=== PATIENT | female | born 1965 | race Caucasian/White ===

== ENCOUNTER 2023-01-16 16:57 | Inpatient (IN) | payer OTHER, SELFPAY ==
--- NOTE | ~2023-01-16 | XR_ITS ---
EXAMINATION: XR CHEST CLINICAL INFORMATION: Chest/rib pain. COMPARISON: None available. TECHNIQUE: Portable upright AP view of the chest was obtained. FINDINGS: The lungs are clear. There is no pneumothorax, pneumomediastinum, or subcutaneous emphysema. No free air beneath the diaphragms. Heart size normal. The vascularity is normal. The costophrenic sulci are well-defined. The visualized bony structures are unremarkable. XR/XR chest 1V IMPRESSION: Unremarkable examination.
[2023-01-16 17:17] VITALS: BP 141/87; PULSE 90; RESP 18; TEMP 36.8; O2SAT 100; BMI 28.9
[2023-01-16 17:31] VITALS: PULSE 86; RESP 18
--- NOTE | 2023-01-16 17:31 | ED_ITS ---
HPI - General Adult General Chief complaint: Psychiatric Symptoms <POLI Corbin - Last Filed: 01/16/23 17:32> Stated complaint: No sleep in days/Increased medication on her own <POLI Corbin - Last Filed: 01/16/23 17:32> Time Seen by Provider: 01/16/23 17:20 <POLI Corbin - Last Filed: 01/16/23 17:32> Source: patient and family <Walter Telles MD - Last Filed: 01/16/23 17:45> Limitations: no limitations <Walter Telles MD - Last Filed: 01/16/23 17:45> History of Present Illness HPI narrative: Patient complains of manic episode. 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 She states she has been unable to sleep for the last several days and prior to that only 2 hours per night. She feels or thoughts racing. She states she has suicidal thoughts but no specific plan and states she would not act on them. She has prior history of manic episodes. She occasionally has some attic symptoms and has been worked up for stroke in the past which has been negative. No recent illness No pain No other complaints <Walter Telles MD - Last Filed: 01/16/23 17:45> Related Data Home medications: Home Medications Medication Instructions Recorded Confirmed apixaban 5 mg tablet (Eliquis) 5 mg PO BID 01/16/23 01/16/23 lamotrigine 25 mg tablet 25 mg PO DAILY 01/16/23 01/16/23 levothyroxine 25 mcg tablet 25 mcg PO DAILY 01/16/23 01/16/23 paroxetine HCl 10 mg tablet 50 mg PO DAILY 01/16/23 01/16/23 <POLI Corbin - Last Filed: 01/16/23 17:32> Allergies/adverse reactions: Allergies Allergy/AdvReac Type Severity Reaction Status Date / Time Sulfa (Sulfonamide Allergy Unknown RASH Verified 01/16/23 17:21 Antibiotics) [Sulfa(Sulfonamide Antibiotics)] <POLI Corbin - Last Filed: 01/16/23 17:32> Review of Systems Constitutional: Comments: No fevers chills <Walter Telles MD - Last Filed: 01/16/23 17:45> Cardiovascular: Comments: No chest pain <Walter Telles MD - Last Filed: 01/16/23 17:45> Respiratory: Comments: No cough or shortness of breath <Walter Telles MD - Last Filed: 01/16/23 17:45> Gastrointestinal: Comments: No nausea vomiting diarrhea or abdominal pain <Walter Telles MD - Last Filed: 01/16/23 17:45> Musculoskeletal: Comments: No musculoskeletal pain <Walter Telles MD - Last Filed: 01/16/23 17:45> Neurologic: Comments: No focal weakness at this time <Walter Telles MD - Last Filed: 01/16/23 17:45> Psychiatric: Comments: Thoughts racing. Anxiety and depression with vague suicidal thoughts but no specific plan <Walter Telles MD - Last Filed: 01/16/23 17:45> FOR[facility]LY [facility] Past Medical History Medical History: Medical History (Updated 01/17/23 @ 09:17 by POLI Keane) Bipolar disorder Depressed affect <POLI Corbin - Last Filed: 01/16/23 17:32> Surgical History: Surgical History (Updated 01/16/23 @ 17:34 by Carie Masterson) Hx of cholecystectomy <POLI Corbin - Last Filed: 01/16/23 17:32> Social History Social History: Social History Smoked in Last 30 Days: No Use of substances other than those prescribed or required for medical reasons: No Advance Directives: No Advance Directives Information Provided: No Healthcare Proxy: No Guardian: No <POLI Corbin - Last Filed: 01/16/23 17:32> Physical Exam ED Vital Signs: Vital Signs - 24 hr 01/16/23 17:17 01/16/23 17:31 01/16/23 18:37 Temperature 98.3 F 98.6 F Pulse Rate 90 86 79 Respiratory Rate 18 18 16 Blood Pressure 141/87 H 161/90 H Pulse Oximetry 100 97 Oxygen Delivery Method Room Air Room Air 01/16/23 22:34 01/17/23 06:00 01/17/23 14:12 Temperature 97.8 F Pulse Rate 77 86 97 Respiratory Rate 18 17 16 Blood Pressure 119/73 131/78 142/86 H Pulse Oximetry 96 100 97 Oxygen Delivery Method Room Air Room Air Room Air BMI result Body Mass Index 28.9 <POLI Corbin - Last Filed: 01/16/23 17:32> Vital Signs - 24 hr 01/16/23 17:17 01/16/23 17:31 01/16/23 18:37 Temperature 98.3 F 98.6 F Pulse Rate 90 86 79 Respiratory Rate 18 18 16 Blood Pressure 141/87 H 161/90 H Pulse Oximetry 100 97 Oxygen Delivery Method Room Air Room Air 01/16/23 22:34 01/17/23 06:00 01/17/23 14:12 Temperature 97.8 F Pulse Rate 77 86 97 Respiratory Rate 18 17 16 Blood Pressure 119/73 131/78 142/86 H Pulse Oximetry 96 100 97 Oxygen Delivery Method Room Air Room Air Room Air BMI result Body Mass Index 28.9 <Walter Telles MD - Last Filed: 01/16/23 17:45> Vital Signs - 24 hr 01/16/23 17:17 01/16/23 17:31 01/16/23 18:37 Temperature 98.3 F 98.6 F Pulse Rate 90 86 79 Respiratory Rate 18 18 16 Blood Pressure 141/87 H 161/90 H Pulse Oximetry 100 97 Oxygen Delivery Method Room Air Room Air 01/16/23 22:34 01/17/23 06:00 01/17/23 14:12 Temperature 97.8 F Pulse Rate 77 86 97 Respiratory Rate 18 17 16 Blood Pressure 119/73 131/78 142/86 H Pulse Oximetry 96 100 97 Oxygen Delivery Method Room Air Room Air Room Air BMI result Body Mass Index 28.9 <POLI Keane - Last Filed: 01/17/23 16:51> Course Course Course Narrative: This is an RME: Additional HPI, ROS, PE not included below will be deferred to primary provider. 57-year-old female presents to the emergency department with , with failure to thrive over the past few weeks, patient has been adjusting her own Paxil dose at home. reports she has not had much energy has not been getting out of bed has been putting her fingers down her throat, has not been acting herself this has been worsening over the past few days. Physical exam patient with bizarre affect. Plan- straight to ED. <POLI Corbin - Last Filed: 01/16/23 17:32> Reevaluation(s) Reevaluation #1: 01/17/23--0916--physician observation continued. Vital signs stable, labs reviewed. No complaints overnight. Patient pending CARE team evaluation -patient evaluated by CARE team and is now in inpatient bed search <POLI Keane - Last Filed: 01/17/23 16:51> Medications Administered Generic Name Dose Route Start Last Admin Trade Name Freq PRN Reason Stop Dose Admin Apixaban 5 mg 01/17/23 09:30 01/17/23 10:52 Apixaban 5 Mg Tablet PO 5 mg BID MAGI Administration Lamotrigine 25 mg 01/17/23 09:30 01/17/23 10:53 Lamotrigine 25 Mg Tablet PO 25 mg DAILY MAGI Administration Levothyroxine Sodium 25 mcg 01/17/23 09:30 01/17/23 10:52 Levothyroxine Sodium 25 Mcg Tablet PO 25 mcg DAILY@0600 MAGI Administration Paroxetine HCl 50 mg 01/17/23 09:30 01/17/23 10:52 Paroxetine Hcl 10 Mg Tablet PO 50 mg DAILY MAGI Administration Discontinued Medications Generic Name Dose Route Start Last Admin Trade Name Freq PRN Reason Stop Dose Admin Lorazepam 1 mg 01/16/23 17:38 01/16/23 18:16 Lorazepam 1 Mg Tablet PO 01/16/23 17:39 1 mg ONCE ONE Administration Lorazepam 2 mg 01/16/23 23:03 01/16/23 23:43 Lorazepam 1 Mg Tablet PO 01/16/23 23:04 2 mg ONCE ONE Administration <POLI Corbin - Last Filed: 01/16/23 17:32> Medications Administered Generic Name Dose Route Start Last Admin Trade Name Freq PRN Reason Stop Dose Admin Apixaban 5 mg 01/17/23 09:30 01/17/23 10:52 Apixaban 5 Mg Tablet PO 5 mg BID MAGI Administration Lamotrigine 25 mg 01/17/23 09:30 01/17/23 10:53 Lamotrigine 25 Mg Tablet PO 25 mg DAILY MAGI Administration Levothyroxine Sodium 25 mcg 01/17/23 09:30 01/17/23 10:52 Levothyroxine Sodium 25 Mcg Tablet PO 25 mcg DAILY@0600 MAGI Administration Paroxetine HCl 50 mg 01/17/23 09:30 01/17/23 10:52 Paroxetine Hcl 10 Mg Tablet PO 50 mg DAILY MAGI Administration Discontinued Medications Generic Name Dose Route Start Last Admin Trade Name Freq PRN Reason Stop Dose Admin Lorazepam 1 mg 01/16/23 17:38 01/16/23 18:16 Lorazepam 1 Mg Tablet PO 01/16/23 17:39 1 mg ONCE ONE Administration Lorazepam 2 mg 01/16/23 23:03 01/16/23 23:43 Lorazepam 1 Mg Tablet PO 01/16/23 23:04 2 mg ONCE ONE Administration <Walter Telles MD - Last Filed: 01/16/23 17:45> Medications Administered Generic Name Dose Route Start Last Admin Trade Name Freq PRN Reason Stop Dose Admin Apixaban 5 mg 01/17/23 09:30 01/17/23 10:52 Apixaban 5 Mg Tablet PO 5 mg BID MAGI Administration Lamotrigine 25 mg 01/17/23 09:30 01/17/23 10:53 Lamotrigine 25 Mg Tablet PO 25 mg DAILY MGAI Administration Levothyroxine Sodium 25 mcg 01/17/23 09:30 01/17/23 10:52 Levothyroxine Sodium 25 Mcg Tablet PO 25 mcg DAILY@0600 MAGI Administration Paroxetine HCl 50 mg 01/17/23 09:30 01/17/23 10:52 Paroxetine Hcl 10 Mg Tablet PO 50 mg DAILY MAGI Administration Discontinued Medications Generic Name Dose Route Start Last Admin Trade Name Freq PRN Reason Stop Dose Admin Lorazepam 1 mg 01/16/23 17:38 01/16/23 18:16 Lorazepam 1 Mg Tablet PO 01/16/23 17:39 1 mg ONCE ONE Administration Lorazepam 2 mg 01/16/23 23:03 01/16/23 23:43 Lorazepam 1 Mg Tablet PO 01/16/23 23:04 2 mg ONCE ONE Administration <POLI Keane - Last Filed: 01/17/23 16:51> Medical Decision Making Medical Decision Making MDM Narrative: Manic episode in patient with bipolar disorder. Evidence of harm to self at this point. Will do a workup and consult crisis. Ativan <Walter Telles MD - Last Filed: 01/16/23 17:45> Lab Data Result Diagrams: 01/16/23 18:49 01/16/23 18:49 <POLI Corbin - Last Filed: 01/16/23 17:32> Labs: Lab Results 01/16/23 01/16/23 01/16/23 Range/Units 18:49 18:49 18:49 WBC 11.4 H (4.8-10.8) X10*3/uL RBC 4.50 (4.20-5.50) X10*6/uL Hgb 14.2 (12.0-16.0) g/dl Hct 41.3 (37.0-47.0) % MCV 91.8 (80.0-98.0) fL MCH 31.6 (27.0-33.0) pg MCHC 34.4 (31.0-35.0) g/dl RDW 13.1 (11.0-16.0) % Plt Count 314 (160-400) X10*3/uL MPV 10.4 (9.4-12.3) fL Immature Gran % (Auto) 0.3 (0.0-0.4) % Neut % (Auto) 56.9 (45-73) % Lymph % (Auto) 31.0 (20-40) % [place] % (Auto) 10.2 (2-11) % Eos % (Auto) 1.1 (0-4) % Baso % (Auto) 0.5 (0-2) % Lymph # (Auto) 3.5 (1.2-4.9) X10*3/uL [place] # (Auto) 1.2 (0.1-1.2) X10*3/uL Eos # (Auto) 0.1 (0.0-0.4) X10*3/uL Baso # (Auto) 0.1 (0.0-0.2) X10*3/uL Abs Immat Gran (auto) 0.03 (0.00-0.03) X10*3/uL Absolute Neuts (auto) 6.5 (2.0-8.3) x10*3/uL Absolute Nucleated RBC 0.000 (0.0-0.012) X10*3/uL Nucleated RBC % (auto) 0.0 (0.0-0.2) /100WBC Sodium 141 (135-145) mmol/L Potassium 4.1 (3.3-5.1) mmol/L Chloride 106 (96-108) mmol/L Carbon Dioxide 21 L (22-29) mmol/L Anion Gap 18 (12-20) BUN 18 H (9-16) mg/dL Creatinine 0.86 (0.5-1.4) mg/dL Estim Creat Clear Calc 68.7 Estimated GFR > 60 Random Glucose 122 H (60-115) mg/dL Calcium 9.8 (8.4-10.2) mg/dL Total Bilirubin 0.8 (0.0-1.0) mg/dL AST 23 (5-31) U/L ALT 24 (0-31) U/L Alkaline Phosphatase 58 (39-117) U/L Total Protein 7.1 (6.5-8.0) g/dL Albumin 4.5 (3.5-5.0) g/dL TSH 2.71 (0.32-4.0) uIU/mL Urine Color Urine Appearance Urine pH (5.0-9.0) Ur Specific Cornelius (1.005-1.025) Urine Protein (Neg-Trace) mg/dL Urine Glucose (UA) (Negative) mg/dL Urine Ketones (Negative) mg/dL Urine Blood (Negative) Urine Nitrite (Negative) Ur Leukocyte Esterase (Negative) Urine Opiates Screen (Not Detect) Urine Fentanyl Screen (Not Detect) Ur Barbiturates Screen (Not Detect) Ur Phencyclidine Scrn (Not Detect) Ur Amphetamines Screen (Not Detect) U Benzodiazepines Scrn (Not Detect) Urine Cocaine Screen (Not Detect) U Marijuana (THC) Screen (Not Detect) Ethyl Alcohol < 10 mg/dL COVID-19 ([facility]) Negative (Negative) COVID-19 Clin Com See Note 01/16/23 01/16/23 Range/Units 23:46 23:46 WBC (4.8-10.8) X10*3/uL RBC (4.20-5.50) X10*6/uL Hgb (12.0-16.0) g/dl Hct (37.0-47.0) % MCV (80.0-98.0) fL MCH (27.0-33.0) pg MCHC (31.0-35.0) g/dl RDW (11.0-16.0) % Plt Count (160-400) X10*3/uL MPV (9.4-12.3) fL Immature Gran % (Auto) (0.0-0.4) % Neut % (Auto) (45-73) % Lymph % (Auto) (20-40) % [place] % (Auto) (2-11) % Eos % (Auto) (0-4) % Baso % (Auto) (0-2) % Lymph # (Auto) (1.2-4.9) X10*3/uL [place] # (Auto) (0.1-1.2) X10*3/uL Eos # (Auto) (0.0-0.4) X10*3/uL Baso # (Auto) (0.0-0.2) X10*3/uL Abs Immat Gran (auto) (0.00-0.03) X10*3/uL Absolute Neuts (auto) (2.0-8.3) x10*3/uL Absolute Nucleated RBC (0.0-0.012) X10*3/uL Nucleated RBC % (auto) (0.0-0.2) /100WBC Sodium (135-145) mmol/L Potassium (3.3-5.1) mmol/L Chloride (96-108) mmol/L Carbon Dioxide (22-29) mmol/L Anion Gap (12-20) BUN (9-16) mg/dL Creatinine (0.5-1.4) mg/dL Estim Creat Clear Calc Estimated GFR Random Glucose (60-115) mg/dL Calcium (8.4-10.2) mg/dL Total Bilirubin (0.0-1.0) mg/dL AST (5-31) U/L ALT (0-31) U/L Alkaline Phosphatase (39-117) U/L Total Protein (6.5-8.0) g/dL Albumin (3.5-5.0) g/dL TSH (0.32-4.0) uIU/mL Urine Color Yellow Urine Appearance Clear Urine pH 7.5 (5.0-9.0) Ur Specific Cornelius 1.010 (1.005-1.025) Urine Protein Negative (Neg-Trace) mg/dL Urine Glucose (UA) Negative (Negative) mg/dL Urine Ketones Negative (Negative) mg/dL Urine Blood Negative (Negative) Urine Nitrite Negative (Negative) Ur Leukocyte Esterase Negative (Negative) Urine Opiates Screen Not Detected (Not Detect) Urine Fentanyl Screen Not Detected (Not Detect) Ur Barbiturates Screen Not Detected (Not Detect) Ur Phencyclidine Scrn Not Detected (Not Detect) Ur Amphetamines Screen Not Detected (Not Detect) U Benzodiazepines Scrn Not Detected (Not Detect) Urine Cocaine Screen Not Detected (Not Detect) U Marijuana (THC) Screen Not Detected (Not Detect) Ethyl Alcohol mg/dL COVID-19 ([facility]) (Negative) COVID-19 Clin Com <POLI Corbin - Last Filed: 01/16/23 17:32> Lab Results 01/16/23 01/16/23 01/16/23 Range/Units 18:49 18:49 18:49 WBC 11.4 H (4.8-10.8) X10*3/uL RBC 4.50 (4.20-5.50) X10*6/uL Hgb 14.2 (12.0-16.0) g/dl Hct 41.3 (37.0-47.0) % MCV 91.8 (80.0-98.0) fL MCH 31.6 (27.0-33.0) pg MCHC 34.4 (31.0-35.0) g/dl RDW 13.1 (11.0-16.0) % Plt Count 314 (160-400) X10*3/uL MPV 10.4 (9.4-12.3) fL Immature Gran % (Auto) 0.3 (0.0-0.4) % Neut % (Auto) 56.9 (45-73) % Lymph % (Auto) 31.0 (20-40) % [place] % (Auto) 10.2 (2-11) % Eos % (Auto) 1.1 (0-4) % Baso % (Auto) 0.5 (0-2) % Lymph # (Auto) 3.5 (1.2-4.9) X10*3/uL [place] # (Auto) 1.2 (0.1-1.2) X10*3/uL Eos # (Auto) 0.1 (0.0-0.4) X10*3/uL Baso # (Auto) 0.1 (0.0-0.2) X10*3/uL Abs Immat Gran (auto) 0.03 (0.00-0.03) X10*3/uL Absolute Neuts (auto) 6.5 (2.0-8.3) x10*3/uL Absolute Nucleated RBC 0.000 (0.0-0.012) X10*3/uL Nucleated RBC % (auto) 0.0 (0.0-0.2) /100WBC Sodium 141 (135-145) mmol/L Potassium 4.1 (3.3-5.1) mmol/L Chloride 106 (96-108) mmol/L Carbon Dioxide 21 L (22-29) mmol/L Anion Gap 18 (12-20) BUN 18 H (9-16) mg/dL Creatinine 0.86 (0.5-1.4) mg/dL Estim Creat Clear Calc 68.7 Estimated GFR > 60 Random Glucose 122 H (60-115) mg/dL Calcium 9.8 (8.4-10.2) mg/dL Total Bilirubin 0.8 (0.0-1.0) mg/dL AST 23 (5-31) U/L ALT 24 (0-31) U/L Alkaline Phosphatase 58 (39-117) U/L Total Protein 7.1 (6.5-8.0) g/dL Albumin 4.5 (3.5-5.0) g/dL TSH 2.71 (0.32-4.0) uIU/mL Urine Color Urine Appearance Urine pH (5.0-9.0) Ur Specific Cornelius (1.005-1.025) Urine Protein (Neg-Trace) mg/dL Urine Glucose (UA) (Negative) mg/dL Urine Ketones (Negative) mg/dL Urine Blood (Negative) Urine Nitrite (Negative) Ur Leukocyte Esterase (Negative) Urine Opiates Screen (Not Detect) Urine Fentanyl Screen (Not Detect) Ur Barbiturates Screen (Not Detect) Ur Phencyclidine Scrn (Not Detect) Ur Amphetamines Screen (Not Detect) U Benzodiazepines Scrn (Not Detect) Urine Cocaine Screen (Not Detect) U Marijuana (THC) Screen (Not Detect) Ethyl Alcohol < 10 mg/dL COVID-19 ([facility]) Negative (Negative) COVID-19 Clin Com See Note 01/16/23 01/16/23 Range/Units 23:46 23:46 WBC (4.8-10.8) X10*3/uL RBC (4.20-5.50) X10*6/uL Hgb (12.0-16.0) g/dl Hct (37.0-47.0) % MCV (80.0-98.0) fL MCH (27.0-33.0) pg MCHC (31.0-35.0) g/dl RDW (11.0-16.0) % Plt Count (160-400) X10*3/uL MPV (9.4-12.3) fL Immature Gran % (Auto) (0.0-0.4) % Neut % (Auto) (45-73) % Lymph % (Auto) (20-40) % [place] % (Auto) (2-11) % Eos % (Auto) (0-4) % Baso % (Auto) (0-2) % Lymph # (Auto) (1.2-4.9) X10*3/uL [place] # (Auto) (0.1-1.2) X10*3/uL Eos # (Auto) (0.0-0.4) X10*3/uL Baso # (Auto) (0.0-0.2) X10*3/uL Abs Immat Gran (auto) (0.00-0.03) X10*3/uL Absolute Neuts (auto) (2.0-8.3) x10*3/uL Absolute Nucleated RBC (0.0-0.012) X10*3/uL Nucleated RBC % (auto) (0.0-0.2) /100WBC Sodium (135-145) mmol/L Potassium (3.3-5.1) mmol/L Chloride (96-108) mmol/L Carbon Dioxide (22-29) mmol/L Anion Gap (12-20) BUN (9-16) mg/dL Creatinine (0.5-1.4) mg/dL Estim Creat Clear Calc Estimated GFR Random Glucose (60-115) mg/dL Calcium (8.4-10.2) mg/dL Total Bilirubin (0.0-1.0) mg/dL AST (5-31) U/L ALT (0-31) U/L Alkaline Phosphatase (39-117) U/L Total Protein (6.5-8.0) g/dL Albumin (3.5-5.0) g/dL TSH (0.32-4.0) uIU/mL Urine Color Yellow Urine Appearance Clear Urine pH 7.5 (5.0-9.0) Ur Specific Cornelius 1.010 (1.005-1.025) Urine Protein Negative (Neg-Trace) mg/dL Urine Glucose (UA) Negative (Negative) mg/dL Urine Ketones Negative (Negative) mg/dL Urine Blood Negative (Negative) Urine Nitrite Negative (Negative) Ur Leukocyte Esterase Negative (Negative) Urine Opiates Screen Not Detected (Not Detect) Urine Fentanyl Screen Not Detected (Not Detect) Ur Barbiturates Screen Not Detected (Not Detect) Ur Phencyclidine Scrn Not Detected (Not Detect) Ur Amphetamines Screen Not Detected (Not Detect) U Benzodiazepines Scrn Not Detected (Not Detect) Urine Cocaine Screen Not Detected (Not Detect) U Marijuana (THC) Screen Not Detected (Not Detect) Ethyl Alcohol mg/dL COVID-19 ([facility]) (Negative) COVID-19 Clin Com <Walter Telles MD - Last Filed: 01/16/23 17:45> Lab Results 01/16/23 01/16/23 01/16/23 Range/Units 18:49 18:49 18:49 WBC 11.4 H (4.8-10.8) X10*3/uL RBC 4.50 (4.20-5.50) X10*6/uL Hgb 14.2 (12.0-16.0) g/dl Hct 41.3 (37.0-47.0) % MCV 91.8 (80.0-98.0) fL MCH 31.6 (27.0-33.0) pg MCHC 34.4 (31.0-35.0) g/dl RDW 13.1 (11.0-16.0) % Plt Count 314 (160-400) X10*3/uL MPV 10.4 (9.4-12.3) fL Immature Gran % (Auto) 0.3 (0.0-0.4) % Neut % (Auto) 56.9 (45-73) % Lymph % (Auto) 31.0 (20-40) % [place] % (Auto) 10.2 (2-11) % Eos % (Auto) 1.1 (0-4) % Baso % (Auto) 0.5 (0-2) % Lymph # (Auto) 3.5 (1.2-4.9) X10*3/uL [place] # (Auto) 1.2 (0.1-1.2) X10*3/uL Eos # (Auto) 0.1 (0.0-0.4) X10*3/uL Baso # (Auto) 0.1 (0.0-0.2) X10*3/uL Abs Immat Gran (auto) 0.03 (0.00-0.03) X10*3/uL Absolute Neuts (auto) 6.5 (2.0-8.3) x10*3/uL Absolute Nucleated RBC 0.000 (0.0-0.012) X10*3/uL Nucleated RBC % (auto) 0.0 (0.0-0.2) /100WBC Sodium 141 (135-145) mmol/L Potassium 4.1 (3.3-5.1) mmol/L Chloride 106 (96-108) mmol/L Carbon Dioxide 21 L (22-29) mmol/L Anion Gap 18 (12-20) BUN 18 H (9-16) mg/dL Creatinine 0.86 (0.5-1.4) mg/dL Estim Creat Clear Calc 68.7 Estimated GFR > 60 Random Glucose 122 H (60-115) mg/dL Calcium 9.8 (8.4-10.2) mg/dL Total Bilirubin 0.8 (0.0-1.0) mg/dL AST 23 (5-31) U/L ALT 24 (0-31) U/L Alkaline Phosphatase 58 (39-117) U/L Total Protein 7.1 (6.5-8.0) g/dL Albumin 4.5 (3.5-5.0) g/dL TSH 2.71 (0.32-4.0) uIU/mL Urine Color Urine Appearance Urine pH (5.0-9.0) Ur Specific Cornelius (1.005-1.025) Urine Protein (Neg-Trace) mg/dL Urine Glucose (UA) (Negative) mg/dL Urine Ketones (Negative) mg/dL Urine Blood (Negative) Urine Nitrite (Negative) Ur Leukocyte Esterase (Negative) Urine Opiates Screen (Not Detect) Urine Fentanyl Screen (Not Detect) Ur Barbiturates Screen (Not Detect) Ur Phencyclidine Scrn (Not Detect) Ur Amphetamines Screen (Not Detect) U Benzodiazepines Scrn (Not Detect) Urine Cocaine Screen (Not Detect) U Marijuana (THC) Screen (Not Detect) Ethyl Alcohol < 10 mg/dL COVID-19 ([facility]) Negative (Negative) COVID-19 Clin Com See Note 01/16/23 01/16/23 Range/Units 23:46 23:46 WBC (4.8-10.8) X10*3/uL RBC (4.20-5.50) X10*6/uL Hgb (12.0-16.0) g/dl Hct (37.0-47.0) % MCV (80.0-98.0) fL MCH (27.0-33.0) pg MCHC (31.0-35.0) g/dl RDW (11.0-16.0) % Plt Count (160-400) X10*3/uL MPV (9.4-12.3) fL Immature Gran % (Auto) (0.0-0.4) % Neut % (Auto) (45-73) % Lymph % (Auto) (20-40) % [place] % (Auto) (2-11) % Eos % (Auto) (0-4) % Baso % (Auto) (0-2) % Lymph # (Auto) (1.2-4.9) X10*3/uL [place] # (Auto) (0.1-1.2) X10*3/uL Eos # (Auto) (0.0-0.4) X10*3/uL Baso # (Auto) (0.0-0.2) X10*3/uL Abs Immat Gran (auto) (0.00-0.03) X10*3/uL Absolute Neuts (auto) (2.0-8.3) x10*3/uL Absolute Nucleated RBC (0.0-0.012) X10*3/uL Nucleated RBC % (auto) (0.0-0.2) /100WBC Sodium (135-145) mmol/L Potassium (3.3-5.1) mmol/L Chloride (96-108) mmol/L Carbon Dioxide (22-29) mmol/L Anion Gap (12-20) BUN (9-16) mg/dL Creatinine (0.5-1.4) mg/dL Estim Creat Clear Calc Estimated GFR Random Glucose (60-115) mg/dL Calcium (8.4-10.2) mg/dL Total Bilirubin (0.0-1.0) mg/dL AST (5-31) U/L ALT (0-31) U/L Alkaline Phosphatase (39-117) U/L Total Protein (6.5-8.0) g/dL Albumin (3.5-5.0) g/dL TSH (0.32-4.0) uIU/mL Urine Color Yellow Urine Appearance Clear Urine pH 7.5 (5.0-9.0) Ur Specific Cornelius 1.010 (1.005-1.025) Urine Protein Negative (Neg-Trace) mg/dL Urine Glucose (UA) Negative (Negative) mg/dL Urine Ketones Negative (Negative) mg/dL Urine Blood Negative (Negative) Urine Nitrite Negative (Negative) Ur Leukocyte Esterase Negative (Negative) Urine Opiates Screen Not Detected (Not Detect) Urine Fentanyl Screen Not Detected (Not Detect) Ur Barbiturates Screen Not Detected (Not Detect) Ur Phencyclidine Scrn Not Detected (Not Detect) Ur Amphetamines Screen Not Detected (Not Detect) U Benzodiazepines Scrn Not Detected (Not Detect) Urine Cocaine Screen Not Detected (Not Detect) U Marijuana (THC) Screen Not Detected (Not Detect) Ethyl Alcohol mg/dL COVID-19 ([facility]) (Negative) COVID-19 Clin Com <POLI Keane - Last Filed: 01/17/23 16:51> Discharge Plan Discharge Clinical Impression: Bipolar disorder <POLI Corbin - Last Filed: 01/16/23 17:32> Patient Disposition: Still a Patient <POLI Corbin - Last Filed: 01/16/23 17:32> Prescriptions: No Action paroxetine HCl 10 mg tablet 50 mg PO DAILY lamotrigine 25 mg tablet 25 mg PO DAILY Eliquis 5 mg tablet 5 mg PO BID levothyroxine 25 mcg tablet 25 mcg PO DAILY <POLI Corbin - Last Filed: 01/16/23 17:32> Interventions: [place]-Suicide Risk Severity Scale Last Done: 01/17/23 14:12 <POLI Corbin - Last Filed: 01/16/23 17:32>
--- NOTE | 2023-01-16 17:31 | PC.NURSE ---
Addendum entered by Carie Masterson 01/16/23 18:57: is taking the pt's shoes and purse home with him Original Note: pt changed over into green attire and belongings secured in the lockers
[2023-01-16] MEDS: LORazepam 1 MG TABLET PO (18:16)
--- NOTE | 2023-01-16 18:23 | PC.NURSE ---
pt eases herself to the ground of the bed, this rn at the bedside and assisted the pt to the floor, pt did not hit her head, pt did take the ativan tab
[2023-01-16 18:37] VITALS: BP 161/90; PULSE 79; RESP 16; TEMP 37; O2SAT 97
[2023-01-16 18:57] LABS: MANUAL DIFF FLAG NO
[2023-01-16 18:59] LABS: Basophils Absolute Auto 0.1 X10*3/uL (0.0-0.2); Basophils Percent Auto 0.5 % (0-2); Eosinophils Absolute Auto 0.1 X10*3/uL (0.0-0.4); Eosinophils Percent Auto 1.1 % (0-4); Hematocrit 41.3 % (37.0-47.0); Hemoglobin 14.2 g/dl (12.0-16.0); Imm Gran Abs Auto 0.03 X10*3/uL (0.00-0.03); Imm Gran Pct Auto 0.3 % (0.0-0.4); Lymphocytes Absolute Auto 3.5 X10*3/uL (1.2-4.9); Mean Corpuscular HGB Conc 34.4 g/dl (31.0-35.0); Mean Corpuscular Hemoglobin 31.6 pg (27.0-33.0); Mean Corpuscular Volume 91.8 fL (80.0-98.0); Mean Platelet Volume 10.4 fL (9.4-12.3); Monocytes Absolute Auto 1.2 X10*3/uL (0.1-1.2); Monocytes Percent Auto 10.2 % (2-11); Neutrophils Absolute Auto 6.5 x10*3/uL (2.0-8.3); Neutrophils Percent Auto 56.9 % (45-73); Platelet Count 314 X10*3/uL (160-400); Red Cell Distribution Width 13.1 % (11.0-16.0); White Blood Count 11.4 X10*3/uL (4.8-10.8)
[2023-01-16 19:32] LABS: COVID-19 Test Negative (Negative); IDNOW Serial# BCCEAD1C
[2023-01-16 19:35] LABS: Alanine Aminotransferase 24 U/L (0-31); Albumin Level 4.5 g/dL (3.5-5.0); Alkaline Phosphatase 58 U/L (39-117); Anion Gap 18 (12-20); Aspartate Amino Transferase 23 U/L (5-31); Bilirubin Total 0.8 mg/dL (0.0-1.0); Blood Urea Nitrogen 18 mg/dL (9-16); Calcium 9.8 mg/dL (8.4-10.2); Carbon Dioxide 21 mmol/L (22-29); Chloride 106 mmol/L (96-108); Creatinine Clr Calc Pharmacy 68.7; Estimated Glomerular Filt Rate > 60; Ethanol < 10 mg/dL; Glucose Random 122 mg/dL (60-115); Potassium 4.1 mmol/L (3.3-5.1); Sodium 141 mmol/L (135-145); Total Protein 7.1 g/dL (6.5-8.0)
[2023-01-16 19:41] LABS: TSH reflex Free T4 2.71 uIU/mL (0.32-4.0)
[2023-01-16 22:34] VITALS: BP 119/73; PULSE 77; RESP 18; O2SAT 96
--- NOTE | 2023-01-16 22:57 | PC.NURSE ---
pt given a trial with walking before going to the pod. pt is calm cooperative, pt states she has to tell her body to move by talking to herself. pt was having difficulty lifting her head and then on walking pt was telling her feet to move. pt then became weak and started to lower herself to the ground. pt place back in bed, sitter present, and provider made aware that the pt was not taken to the pod.
[2023-01-16] MEDS: LORazepam 1 MG TABLET 2 MG PO (23:43)
[2023-01-16 23:54] LABS: Appearance Urine Clear; Color Urine Yellow; Glucose Urine UA Negative (Negative); Leukocyte Esterase Urine Negative (Negative); Nitrite Urine Negative (Negative); PH 7.5 (5.0-9.0); Urine Blood Negative (Negative); Urine Ketones Negative (Negative); Urine Protein Negative (Neg-Trace)
[2023-01-17 00:08] LABS: Amphetamine Screen Urine Not Detected (Not Detect); Barbiturates, Urine Not Detected (Not Detect); Benzodiazepines Screen Urine Not Detected (Not Detect); Cannabinoid Screen Urine Not Detected (Not Detect); Cocaine Screen Urine Not Detected (Not Detect); Fentanyl, urine Not Detected (Not Detect); Opiate Screen Urine Not Detected (Not Detect); Phencyclidine Screen Urine Not Detected (Not Detect)
[2023-01-17 06:00] VITALS: BP 131/78; PULSE 86; RESP 17; TEMP 36.6; O2SAT 100
--- NOTE | 2023-01-17 06:07 | PC.NURSE ---
pt has been sleeping thur the night. skin pink warm and dry. pt still had weakness with attempting to walk. pt was treated with ativan and has been asleep since. sitter present at bedside. unable to transfer pt to the pod at this time till pt can walk.
--- NOTE | 2023-01-17 08:47 | PC.NURSE ---
Pt awake, conversing with patient observer in room. Offering no complaints
--- NOTE | 2023-01-17 09:44 | PHA.MEDREC ---
Pharmacy Consult ? Medication Reconciliation Pharmacy has reviewed the medication reconciliation done by Isaac
--- NOTE | 2023-01-17 09:57 | PC.NURSE ---
Care Team evaluating patient
[2023-01-17] MEDS: Levothyroxine Sodium 25 MCG TABLET PO (10:52)
[2023-01-17] MEDS: Apixaban 5 MG TABLET PO (10:52)
[2023-01-17] MEDS: PARoxetine HCL 10 MG TABLET 50 MG PO (10:52)
[2023-01-17] MEDS: lamoTRIgine 25 MG TABLET PO (10:53)
--- NOTE | 2023-01-17 10:56 | PC.NURSE ---
Pt still unsteady on feet when up to use commode. Pt reports feeling safe being in the emergency department.
[2023-01-17 14:12] VITALS: BP 142/86; PULSE 97; RESP 16; O2SAT 97
--- NOTE | 2023-01-17 15:43 | PC.NURSE ---
Continues to offer no complaints, resting comfortably in stretcher, patient observer at bedside.
--- NOTE | 2023-01-17 16:33 | ECG_ITS ---
Test Reason : CLEARANCE Blood Pressure : / mmHG Vent. Rate : 089 BPM Atrial Rate : 089 BPM P-R Int : 136 ms QRS Dur : 074 ms QT Int : 364 ms P-R-T Axes : 048 -50 031 degrees QTc Int : 442 ms Normal sinus rhythm Left anterior fascicular block Abnormal ECG No previous ECGs available Referred By: Kristyn House Electronically Signed By:RICHELLE WHITMORE MD
--- NOTE | 2023-01-17 19:01 | PC.NURSE ---
Pt began crying and yelling out in room. Attempted to give PO medications, patient refused stating my body is shutting down, I can't. Offered IM medications which patient accepted.
[2023-01-17 23:50] VITALS: BP 136/82; PULSE 95; RESP 18; TEMP 36.6; O2SAT 96
--- NOTE | 2023-01-18 01:59 | PC.ADMIT ---
PT is a 57 year old female admitted to unit on CV who self presented to [facility] ED with for racing thoughts, poor seep, manic episodes, and reports of SI. PT is known to [facility] and . PT placed on 5 minute safety checks due to sliding off bed and placing self on floor in room intentionally. PT states she has difficulty ambulating due to muscles being constricted with her erika. PT has PMH of depression, bipolar and cholecystectomy. PT able to sign legals and start treatment plan, then requesting to go to bed. PT A+Ox3 and unable to complete admission interview, appears weak, depressed, tired and helpless. PT calm and cooperative otherwise. PT denies SI.HI and reports safe on unit.
[2023-01-18] MEDS: QUEtiapine Fumarate 100 MG TABLET PO (03:10)
[2023-01-18 07:00] VITALS: BMI 28.9
[2023-01-18] MEDS: Levothyroxine Sodium 25 MCG TABLET PO (08:13)
[2023-01-18] MEDS: lamoTRIgine 25 MG TABLET PO (08:13)
[2023-01-18] MEDS: PARoxetine HCL 30 MG TABLET PO (08:13)
[2023-01-18] MEDS: Apixaban 5 MG TABLET PO ×2 (08:13→19:39)
[2023-01-18 08:34] VITALS: BP 172/81; PULSE 75; RESP 16; TEMP 36.3; O2SAT 97
[2023-01-18 09:13] LABS: Alanine Aminotransferase 22 U/L (0-31); Albumin Level 4.3 g/dL (3.5-5.0); Alkaline Phosphatase 58 U/L (39-117); Aspartate Amino Transferase 26 U/L (5-31); Bilirubin Total 0.7 mg/dL (0.0-1.0); Blood Urea Nitrogen 15 mg/dL (9-16); Calcium 9.3 mg/dL (8.4-10.2); Cholesterol 190 mg/dL; Creatinine Clr Calc Pharmacy 68.7; Estimated Glomerular Filt Rate > 60; Glucose Fasting 106 mg/dL (60-99); HDL Cholesterol 46 mg/dL; LDL Cholesterol Calculated 124 mg/dl; Total Protein 6.6 g/dL (6.5-8.0); Triglycerides 100 mg/dL
[2023-01-18 09:22] LABS: Anion Gap 11 (12-20); Carbon Dioxide 29 mmol/L (22-29); Chloride 106 mmol/L (96-108); Potassium 4.4 mmol/L (3.3-5.1); Sodium 142 mmol/L (135-145)
--- NOTE | 2023-01-18 09:29 | P.HPPS_ITS ---
HPI Date of Service: 01/18/23 Chief Complaint: SI Sources of Information: patient interviewed, chart reviewed and crisis/core team assessment reviewed HPI Subjective Notes: Segura Warning and Conditional Voluntary Narrative: Patient is a 57 year old female with a history of PE, bipolar disorder, PTSD, and depression. Who presents to the ED via her due to a manic episode following an self decision to increase Paxil. 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 Prior to this, patient reports feeling depressed for the last 8 months. Patient denies SI/HI/VH/AH. No history of substance abuse noted. Hx of trauma and unprocessed ptsd symptoms. On approach pt hugging stuffed animal and had placed herself on the floor due to unexplained somatic feelings. She has insight to know she's having manic episode. Past Psychiatric History: Patient reports having a similar manic state this time last year thinking she was having a stroke reports psych inpatient 3 other times. She [place] in [place] for [place] psychiatric [place]. Medical Evaluation Reviewed: Yes [facility] Medical History (Updated 01/18/23 @ 14:35 by Raghu Harris MD) Bipolar disorder Depressed affect PTSD (post-traumatic stress disorder) Surgical History (Updated 01/16/23 @ 17:34 by Carie Masterson) Hx of cholecystectomy Diagnostics Vital Signs (24Hr): Vital Signs - 24 hr 01/17/23 14:12 01/17/23 23:50 01/18/23 08:34 Temperature 97.9 F 97.3 F Pulse Rate 97 95 75 Respiratory Rate 16 18 16 Blood Pressure 142/86 H 136/82 172/81 H Pulse Oximetry 97 96 97 Oxygen Delivery Method Room Air Room Air Room Air BMI result Body Mass Index 28.9 Labs 01/16/23 18:49 01/18/23 08:17 Labs: Laboratory Results - last 48 hr 01/16/23 01/16/23 01/16/23 18:49 18:49 18:49 WBC 11.4 H RBC 4.50 Hgb 14.2 Hct 41.3 MCV 91.8 MCH 31.6 MCHC 34.4 RDW 13.1 Plt Count 314 MPV 10.4 Immature Gran % (Auto) 0.3 Neut % (Auto) 56.9 Lymph % (Auto) 31.0 [place] % (Auto) 10.2 Eos % (Auto) 1.1 Baso % (Auto) 0.5 Lymph # (Auto) 3.5 Howard # (Auto) 1.2 Eos # (Auto) 0.1 Baso # (Auto) 0.1 Abs Immat Gran (auto) 0.03 Absolute Neuts (auto) 6.5 Absolute Nucleated RBC 0.000 Nucleated RBC % (auto) 0.0 Sodium 141 Potassium 4.1 Chloride 106 Carbon Dioxide 21 L Anion Gap 18 BUN 18 H Creatinine 0.86 Estim Creat Clear Calc 68.7 Estimated GFR > 60 Random Glucose 122 H Fasting Glucose Calcium 9.8 Total Bilirubin 0.8 AST 23 ALT 24 Alkaline Phosphatase 58 Total Protein 7.1 Albumin 4.5 Triglycerides Cholesterol LDL Cholesterol, Calc HDL Cholesterol TSH 2.71 Urine Color Urine Appearance Urine pH Ur Specific [place] Urine Protein Urine Glucose (UA) Urine Ketones Urine Blood Urine Nitrite Ur Leukocyte Esterase Urine Opiates Screen Urine Fentanyl Screen Ur Barbiturates Screen Ur Phencyclidine Scrn Ur Amphetamines Screen U Benzodiazepines Scrn Urine Cocaine Screen U Marijuana (THC) Screen Ethyl Alcohol < 10 COVID-19 ([facility]) Negative COVID-19 Clin Com See Note 01/16/23 01/16/23 01/18/23 23:46 23:46 08:17 WBC RBC Hgb Hct MCV MCH MCHC RDW Plt Count MPV Immature Gran % (Auto) Neut % (Auto) Lymph % (Auto) [place] % (Auto) Eos % (Auto) Baso % (Auto) Lymph # (Auto) Howard # (Auto) Eos # (Auto) Baso # (Auto) Abs Immat Gran (auto) Absolute Neuts (auto) Absolute Nucleated RBC Nucleated RBC % (auto) Sodium 142 Potassium 4.4 Chloride 106 Carbon Dioxide 29 Anion Gap 11 L BUN 15 Creatinine 0.86 Estim Creat Clear Calc 68.7 Estimated GFR > 60 Random Glucose Fasting Glucose 106 H Calcium 9.3 Total Bilirubin 0.7 AST 26 ALT 22 Alkaline Phosphatase 58 Total Protein 6.6 Albumin 4.3 Triglycerides 100 Cholesterol 190 LDL Cholesterol, Calc 124 HDL Cholesterol 46 TSH Urine Color Yellow Urine Appearance Clear Urine pH 7.5 Ur Specific [place] 1.010 Urine Protein Negative Urine Glucose (UA) Negative Urine Ketones Negative Urine Blood Negative Urine Nitrite Negative Ur Leukocyte Esterase Negative Urine Opiates Screen Not Detected Urine Fentanyl Screen Not Detected Ur Barbiturates Screen Not Detected Ur Phencyclidine Scrn Not Detected Ur Amphetamines Screen Not Detected U Benzodiazepines Scrn Not Detected Urine Cocaine Screen Not Detected U Marijuana (THC) Screen Not Detected Ethyl Alcohol COVID-19 ([facility]) COVID-19 Clin Com Meds/Allergies Meds Home Medications Medication Instructions Recorded Confirmed Type apixaban 5 mg tablet (Eliquis) 5 mg PO BID 01/16/23 01/16/23 History lamotrigine 25 mg tablet 25 mg PO DAILY 01/16/23 01/16/23 History levothyroxine 25 mcg tablet 25 mcg PO DAILY 01/16/23 01/16/23 History paroxetine HCl 10 mg tablet 50 mg PO DAILY 01/16/23 01/16/23 History Allergies Allergies Allergy/AdvReac Type Severity Reaction Status Date / Time Sulfa (Sulfonamide Allergy Unknown RASH Verified 01/16/23 17:21 Antibiotics) [Sulfa(Sulfonamide Antibiotics)] Mental Status Exam Mental Status Exam Narrative: Pt is alert and oriented; behavior is cooperative, friendly and calm; patient is in emotional distress; dressed in casual attire with unkempt hair but adequate hygiene; mood is described as poor and affect congruent; eye contact approp riate; Speech is normal rate, volume and prosody and not pressured; no psychomotor agitation/retardation present; thought process is organized and goal directed; Thought content is on tx; otherwise pertinent to relevant topics and without any delusional content, paranoid ideations or grandiosity; denies any SI/HI. There is no evidence of perceptual disturbance. Patients insight and judgment appear intact. Patient Appearance: Unkempt Patient Orientation: Person, Place, Time and Situation Level of Consciousness: Awake and Appropriate Patient Behavior: Appropriate, Cooperative, Anxious and Good Eye Contact Mood Description: Calm, Depressed and Anxious Patient Cognition Impaired: No Ability to Follow Directions: Good Speech Pattern: Clear and Rambling Memory Description: Intact Hallucinations: None Delusions: Not Present Thought Process: Intact and Goal Oriented Thought Content: positive for Intact and positive for Goal Oriented Depressive Symptoms: Increased Anxiety, Insomnia, Difficulty Sleeping and Crying Spells Judgement: Fair Assessment & Plan Assessment & Plan (1) Bipolar disorder: Status: Acute Code(s): F31.9 - Bipolar disorder, unspecified (2) PTSD (post-traumatic stress disorder): Status: Acute Code(s): F43.10 - Post-traumatic stress disorder, unspecified Plan Patient is a 57 year old female with a history of PE, bipolar disorder, PTSD, and depression. Who presents to the ED via her due to a manic episode following an self decision to increase Paxil. -pt currently manic (mixed state); agrees to start lithium (reviewed risks/side- effects and pt agrees) -will lower, but not discontinue Paxil to avoid discontinuation syndrome; will dc if erika resolve. PLAN: CV Q15 min checks START [place] ER 300mg BID (bun/cr WNL) -will check level/associated labs Lower Paxil to 10mg (to avoid dc-syndrome; will dc if erika does not resolve) Seroquel prn; sleep/anxiety Trazodone prn for sleep Ativan one time dose to help calm Conitnue lamictal 25mg daily (started by outpt provider) continue Eloquis; hx of PE will gather collateral Patient educated on: diagnosis, medication risk/benefits and therapeutic strategies Informed Consent: understands and further education needed Reason for continued inpatient stay Substantial Risk for: inability to function Statement Statement: I have reviewed the history and physical and performed a pertinent examination on my patient. No changes have occurred unless specified. If the History and Physical was not performed prior to admission, the Hospitalist's service will be consulted for completing the admission physical. Time Spent With Patient Time: Total time managing care of this patient today ____ minutes.
[2023-01-18] MEDS: LORazepam 1 MG TABLET PO ×2 (14:17→19:39)
[2023-01-18] MEDS: Lithium Carbonate ER 300 MG TABLET.ER PO ×2 (14:17→19:39)
[2023-01-18 16:20] VITALS: BP 129/85; PULSE 101; TEMP 36.5
[2023-01-18 17:15] VITALS: BP 144/76; PULSE 89; TEMP 36.8
[2023-01-18] MEDS: hydrOXYzine HCL 25 MG TABLET PO (17:18)
[2023-01-19] MEDS: Levothyroxine Sodium 25 MCG TABLET PO (05:57)
[2023-01-19 08:30] LABS: Lithium 0.21 mmol/L (0.60-1.20)
[2023-01-19] MEDS: LORazepam 1 MG TABLET PO (09:08)
[2023-01-19] MEDS: lamoTRIgine 25 MG TABLET PO (09:08)
[2023-01-19] MEDS: Apixaban 5 MG TABLET PO ×2 (09:08→21:27)
[2023-01-19] MEDS: PARoxetine HCL 20 MG TABLET PO (09:08)
[2023-01-19] MEDS: Lithium Carbonate ER 300 MG TABLET.ER PO ×2 (09:08→21:27)
--- NOTE | 2023-01-19 10:26 | HO.PSYCHPN ---
Subjective Subjective Date of Service: 01/19/23 Reason For Visit: SI Interim History: Met with patient; discussed with team Patient reports feeling much better. She said she slept well last night. She says she is feeling overall much more calm and more clear minded. She says I am not delusional anymore and references her recent history of fainting or feeling that her body was out of control. Patient says she is able to reflect on things abdomen going on. She is grateful for the medication and says that it was what she needed. Patient agrees to continue with it for now. Patient also wants to get into partial day program as soon as possible. Mental Status Exam Mental Status Exam Narrative: Pt is alert and oriented; behavior is cooperative, friendly and much more calm, though can still become tearful; dressed in hospital attire, caring stuffed animal, unkempt hair but adequate hygiene; mood is described as better and affect congruent, more calm; eye contact appropriate; Speech is normal rate, volume and prosody and not pressured; no psychomotor agitation/retardation present; thought process is more organized and goal directed; Thought content is on tx; otherwise pertinent to relevant topics; no expressed delusional content or paranoid ideations; denies any SI/HI. There is no evidence of perceptual disturbance. Patients insight and judgment impaired but improving Diagnostics Vital Signs (24Hr): Vital Signs - 24 hr 01/18/23 16:20 01/18/23 17:15 Temperature 97.7 F 98.2 F Pulse Rate 101 H 89 Blood Pressure 129/85 144/76 H BMI result Body Mass Index 28.9 Labs 01/16/23 18:49 01/18/23 08:17 Labs: Laboratory Results - last 48 hr 01/18/23 01/19/23 08:17 08:06 Sodium 142 Potassium 4.4 Chloride 106 Carbon Dioxide 29 Anion Gap 11 L BUN 15 Creatinine 0.86 Estim Creat Clear Calc 68.7 Estimated GFR > 60 Fasting Glucose 106 H Calcium 9.3 Total Bilirubin 0.7 AST 26 ALT 22 Alkaline Phosphatase 58 Total Protein 6.6 Albumin 4.3 Triglycerides 100 Cholesterol 190 LDL Cholesterol, Calc 124 HDL Cholesterol 46 [place] 0.21 L Medications Medications Current Medications Acetaminophen (Acetaminophen 325 Mg Tablet) 650 mg PO Q6H PRN PRN Reason: Headache/Pain Mild Scale (1-3) Al Hydroxide/Mg Hydroxide (Magnesium Hydrox/Alum Hydrox 30 Ml Oral.Susp) 30 ml PO Q6H PRN PRN Reason: Heartburn/Nausea Apixaban (Apixaban 5 Mg Tablet) 5 mg PO BID [facility] Last Admin: 01/19/23 09:08 Dose: 5 mg Hydroxyzine HCl (Hydroxyzine Hcl 25 Mg Tablet) 25 mg PO Q6H PRN PRN Reason: Anxiety Last Admin: 01/18/23 17:18 Dose: 25 mg Lamotrigine (Lamotrigine 25 Mg Tablet) 25 mg PO DAILY [facility] Last Admin: 01/19/23 09:08 Dose: 25 mg Levothyroxine Sodium (Levothyroxine Sodium 25 Mcg Tablet) 25 mcg PO DAILY@0600 [facility] Last Admin: 01/19/23 05:57 Dose: 25 mcg [place] Carbonate ([place] Carbonate Er 300 Mg Tablet.Er) 300 mg PO BID [facility] Last Admin: 01/19/23 09:08 Dose: 300 mg Lorazepam (Lorazepam 1 Mg Tablet) 1 mg PO BID [facility] Last Admin: 01/19/23 09:08 Dose: 1 mg Magnesium Hydroxide (Milk Of Magnesia 30 Ml Oral.Susp) 30 ml PO DAILY PRN PRN Reason: Constipation Nicotine Polacrilex (Nicotine Polacrilex 2 Mg Gum) 4 mg BUCCAL Q2H PRN PRN Reason: Nicotine Cravings Paroxetine HCl (Paroxetine Hcl 20 Mg Tablet) 20 mg PO DAILY [facility] Last Admin: 01/19/23 09:08 Dose: 20 mg Quetiapine Fumarate (Quetiapine Fumarate 100 Mg Tablet) 100 mg PO BEDTIME PRN PRN Reason: insomnia Quetiapine Fumarate (Quetiapine Fumarate 100 Mg Tablet) 100 mg PO QID PRN PRN Reason: anxiety/agitation/insomnia Last Admin: 01/18/23 03:10 Dose: 100 mg Allergies Allergies Allergy/AdvReac Type Severity Reaction Status Date / Time Sulfa (Sulfonamide Allergy Unknown RASH Verified 01/16/23 17:21 Antibiotics) [Sulfa(Sulfonamide Antibiotics)] Assessment & Plan Assessment & Plan (1) Bipolar disorder: Status: Acute Code(s): F31.9 - Bipolar disorder, unspecified (2) PTSD (post-traumatic stress disorder): Status: Acute Code(s): F43.10 - Post-traumatic stress disorder, unspecified Plan Patient is a 57 year old female with a history of PE, bipolar disorder, PTSD, and depression. Who presents to the ED via her due to a manic episode following an self decision to increase Paxil. -pt currently manic (mixed state); agrees to start lithium (reviewed risks/side-effects and pt agrees) -will lower, but not discontinue Paxil to avoid discontinuation syndrome; will dc if erika resolve. Hospital course: 01/19 patient has significant improved with lithium; Paxil lowered to 10 mg to avoid discontinuation syndrome but also to better ensure erika fully resolves. Continue current treatment plan for now PLAN: CV Q15 min checks Continue [place] ER 300mg BID (bun/cr WNL) -will check level/associated labs Lowered Paxil to 10mg (to avoid dc-syndrome; will dc if erika does not resolve) Seroquel prn; sleep/anxiety Trazodone prn for sleep Ativan one time dose to help calm Conitnue lamictal 25mg daily (started by outpt provider) continue Eloquis; hx of PE will gather collateral Patient educated on: diagnosis and medication risk/benefits Informed Consent: understands Reason for contiued inpatient stay Substantial Risk for: rapid decompensation Time Spent With Patient Time: Total time managing care of this patient today ____ minutes.
[2023-01-19] MEDS: hydrOXYzine HCL 25 MG TABLET PO (13:57)
[2023-01-19 18:00] VITALS: BP 134/88; PULSE 95; TEMP 36.6; O2SAT 100
[2023-01-20] MEDS: LORazepam 1 MG TABLET PO (02:18)
[2023-01-20] MEDS: QUEtiapine Fumarate 100 MG TABLET PO (02:18)
[2023-01-20 08:40] VITALS: BP 146/74; PULSE 88; RESP 16; TEMP 36.1; O2SAT 100
[2023-01-20] MEDS: Lithium Carbonate ER 300 MG TABLET.ER PO ×2 (08:41→19:27)
[2023-01-20] MEDS: lamoTRIgine 25 MG TABLET PO (08:41)
[2023-01-20] MEDS: Apixaban 5 MG TABLET PO ×2 (08:42→19:20)
[2023-01-20] MEDS: PARoxetine HCL 10 MG TABLET PO (08:42)
[2023-01-20] MEDS: Levothyroxine Sodium 25 MCG TABLET PO (08:43)
--- NOTE | 2023-01-20 10:58 | HO.PSYCHPN ---
Subjective Subjective Date of Service: 01/20/23 Reason For Visit: SI Interim History: Met with patient; discussed with team Patient remains manic with some disorganized, regressed behavior. Patient also demonstrating somatic symptoms/pseudo seizure like movements where she will flail around on the ground, rolling, doing somersaults; patient who feels that she is out of control and has little ability to control her movements though she agrees she is able to dictate some of the direction which she moves; she remains conscious throughout able to talk to aligner typewriter or staff. Patient shared about feeling neglected on the unit, that people were marginal eyes her feelings, not checking on her, feeling ignored and saying no one cares. Patient agrees that this is not necessarily case but it is how she feels. Patient also shared her history of the none since school being quite mean and controlling, patient hating to go to school but no one taking her concerns seriously. 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 Patient agreed to medication changes Mental Status Exam Mental Status Exam Narrative: Pt is alert and oriented; behavior is cooperative, but emotionally distressed and labile; intermittently having spasms and rolling around on the floor; intermittently emotional and tearful; dressed in hospital attire, unkempt hair but adequate hygiene; mood is described as ight on a and affect congruent, anxious, tearful; eye contact appropriate; Speech is normal rate, volume and prosody and not pressured; intermittent psychomotor agitation present; thought process is more goal directed but also circumstantial in sometimes tangential; Thought content is on history of being ignored, treatment; otherwise pertinent to relevant topics; no expressed delusional content or paranoid ideations; denies any SI/HI. There is no evidence of perceptual disturbance. Patients insight and judgment impaired but improving Diagnostics Vital Signs (24Hr): Vital Signs - 24 hr 01/19/23 18:00 01/20/23 08:40 Temperature 97.8 F 97.0 F Pulse Rate 95 88 Respiratory Rate 16 Blood Pressure 134/88 146/74 H Pulse Oximetry 100 100 Oxygen Delivery Method Room Air Room Air BMI result Body Mass Index 28.9 Labs 01/16/23 18:49 01/18/23 08:17 Labs: Laboratory Results - last 48 hr 01/19/23 08:06 [place] 0.21 L Medications Medications Current Medications Acetaminophen (Acetaminophen 325 Mg Tablet) 650 mg PO Q6H PRN PRN Reason: Headache/Pain Mild Scale (1-3) Al Hydroxide/Mg Hydroxide (Magnesium Hydrox/Alum Hydrox 30 Ml Oral.Susp) 30 ml PO Q6H PRN PRN Reason: Heartburn/Nausea Apixaban (Apixaban 5 Mg Tablet) 5 mg PO BID [facility] Last Admin: 01/20/23 08:42 Dose: 5 mg Hydroxyzine HCl (Hydroxyzine Hcl 25 Mg Tablet) 25 mg PO Q6H PRN PRN Reason: Anxiety Last Admin: 01/19/23 13:57 Dose: 25 mg Lamotrigine (Lamotrigine 25 Mg Tablet) 25 mg PO DAILY [facility] Last Admin: 01/20/23 08:41 Dose: 25 mg Levothyroxine Sodium (Levothyroxine Sodium 25 Mcg Tablet) 25 mcg PO DAILY@0600 [facility] Last Admin: 01/20/23 08:43 Dose: 25 mcg [place] Carbonate ([place] Carbonate Er 300 Mg Tablet.Er) 300 mg PO BID [facility] Last Admin: 01/20/23 08:41 Dose: 300 mg Lorazepam (Lorazepam 1 Mg Tablet) 1 mg PO BID PRN PRN Reason: anxiety Last Admin: 01/20/23 02:18 Dose: 1 mg Magnesium Hydroxide (Milk Of Magnesia 30 Ml Oral.Susp) 30 ml PO DAILY PRN PRN Reason: Constipation Nicotine Polacrilex (Nicotine Polacrilex 2 Mg Gum) 4 mg BUCCAL Q2H PRN PRN Reason: Nicotine Cravings Paroxetine HCl (Paroxetine Hcl 10 Mg Tablet) 10 mg PO DAILY [facility] Last Admin: 01/20/23 08:42 Dose: 10 mg Quetiapine Fumarate (Quetiapine Fumarate 100 Mg Tablet) 100 mg PO BEDTIME PRN PRN Reason: insomnia Quetiapine Fumarate (Quetiapine Fumarate 100 Mg Tablet) 100 mg PO QID PRN PRN Reason: anxiety/agitation/insomnia Last Admin: 01/20/23 02:18 Dose: 100 mg Allergies Allergies Allergy/AdvReac Type Severity Reaction Status Date / Time Sulfa (Sulfonamide Allergy Unknown RASH Verified 01/16/23 17:21 Antibiotics) [Sulfa(Sulfonamide Antibiotics)] Assessment & Plan Assessment & Plan (1) Bipolar disorder: Status: Acute Code(s): F31.9 - Bipolar disorder, unspecified (2) PTSD (post-traumatic stress disorder): Status: Acute Code(s): F43.10 - Post-traumatic stress disorder, unspecified Plan Patient is a 57 year old female with a history of PE, bipolar disorder, PTSD, and depression. Who presents to the ED via her due to a manic episode following an self decision to increase Paxil. -pt currently manic (mixed state); agrees to start lithium (reviewed risks/side-effects and pt agrees) -will lower, but not discontinue Paxil to avoid discontinuation syndrome; will dc if erika resolve. Hospital course: 01/19 patient has significant improved with lithium; Paxil lowered to 10 mg to avoid discontinuation syndrome but also to better ensure erika fully resolves. 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 Patient agrees to medication management including Risperdal PLAN: CV Q15 min checks Increase lithium to 900 mg q.h.s. -will check level/associated labs Start Risperdal 0.5 mg b.i.d. for some emotional state stability; Start clonazepam 0.5 mg b.i.d. to help with anxiety for few days and then DC Lowered Paxil to 10mg (to avoid dc-syndrome; will dc if erika does not resolve) Trazodone prn for sleep Conitnue lamictal 25mg daily (started by outpt provider) continue Eloquis; hx of PE will gather collateral Patient educated on: diagnosis, medication risk/benefits and therapeutic strategies Informed Consent: understands, does not understand and further education needed Reason for contiued inpatient stay Substantial Risk for: inability to function and rapid decompensation Time Spent With Patient Time: Total time managing care of this patient today ____ minutes.
[2023-01-20] MEDS: Haloperidol Lactate 5 MG/ML VIAL 2 MG IM (13:45)
[2023-01-20] MEDS: LORazepam 2 MG/ML VIAL IM (13:45)
[2023-01-20 16:55] VITALS: BP 121/58; PULSE 91; TEMP 36.6; O2SAT 98
[2023-01-20] MEDS: clonazePAM 0.5 MG TABLET PO (19:20)
[2023-01-20] MEDS: Lithium Carbonate ER 300 MG TABLET.ER 600 MG PO (19:20)
[2023-01-20] MEDS: risperiDONE 0.5 MG TABLET PO (19:20)
[2023-01-21] MEDS: Levothyroxine Sodium 25 MCG TABLET PO (05:36)
[2023-01-21] MEDS: clonazePAM 0.5 MG TABLET PO ×2 (07:52→20:26)
[2023-01-21] MEDS: Apixaban 5 MG TABLET PO ×2 (07:52→20:26)
[2023-01-21] MEDS: risperiDONE 0.5 MG TABLET PO ×2 (07:52→20:26)
[2023-01-21] MEDS: lamoTRIgine 25 MG TABLET PO (07:52)
[2023-01-21] MEDS: PARoxetine HCL 10 MG TABLET PO (07:53)
[2023-01-21 08:04] VITALS: BP 116/65; PULSE 83; RESP 16; TEMP 36.8; O2SAT 98
[2023-01-21] MEDS: hydrOXYzine HCL 25 MG TABLET PO ×2 (10:13→20:26)
--- NOTE | 2023-01-21 15:46 | HO.PSYCHPN ---
Subjective Subjective Date of Service: 01/21/23 Reason For Visit: SI Interim History: Met with patient and her for family meeting; discussed with team Patient reports she is feeling much more clear minded and better today; of note she does seem to be much more linear, able to focus; patient has not had any body spasm/nonepileptic seizure events since yesterday. Discussed patient's psychiatric illness, bipolar disorder and nonepileptic seizure/spasm in detail with both patient and her ; reviewed medication regimen and overall strategy. Patient's Juan agrees that she is indeed doing better than yesterday. He still feels like she is not at her baseline and all agree patient needs to remain on the unit for few more days as medications continue to take effect. Mental Status Exam Mental Status Exam Narrative: Pt is alert and oriented; behavior is cooperative, more organized and calm; no spasm ; dressed in casual attire, combed hair but adequate hygiene; mood is described as better and affect congruent, more calm; eye contact appropriate; Speech is normal rate, volume and prosody and not pressured; currently no psychomotor agitation present; thought process is goal directed and linear; Thought content is on illness and treatment; otherwise pertinent to relevant topics; no expressed delusional content or paranoid ideations; denies any SI/HI. There is no evidence of perceptual disturbance. Patients insight and judgment impaired but much improved. Diagnostics Vital Signs (24Hr): Vital Signs - 24 hr 01/20/23 16:55 01/21/23 08:04 Temperature 97.9 F 98.3 F Pulse Rate 91 83 Respiratory Rate 16 Blood Pressure 121/58 L 116/65 Pulse Oximetry 98 98 Oxygen Delivery Method Room Air Room Air BMI result Body Mass Index 28.9 Labs 01/16/23 18:49 01/18/23 08:17 Medications Medications Current Medications Acetaminophen (Acetaminophen 325 Mg Tablet) 650 mg PO Q6H PRN PRN Reason: Headache/Pain Mild Scale (1-3) Al Hydroxide/Mg Hydroxide (Magnesium Hydrox/Alum Hydrox 30 Ml Oral.Susp) 30 ml PO Q6H PRN PRN Reason: Heartburn/Nausea Apixaban (Apixaban 5 Mg Tablet) 5 mg PO BID [facility] Last Admin: 01/21/23 07:52 Dose: 5 mg Clonazepam (Clonazepam 0.5 Mg Tablet) 0.5 mg PO BID [facility] Stop: 01/22/23 11:00 Last Admin: 01/21/23 07:52 Dose: 0.5 mg Hydroxyzine HCl (Hydroxyzine Hcl 25 Mg Tablet) 25 mg PO Q6H PRN PRN Reason: Anxiety Last Admin: 01/21/23 10:13 Dose: 25 mg Lamotrigine (Lamotrigine 25 Mg Tablet) 25 mg PO DAILY [facility] Last Admin: 01/21/23 07:52 Dose: 25 mg Levothyroxine Sodium (Levothyroxine Sodium 25 Mcg Tablet) 25 mcg PO DAILY@0600 [facility] Last Admin: 01/21/23 05:36 Dose: 25 mcg [place] Carbonate ([place] Carbonate Er 450 Mg Tablet.Er) 900 mg PO BEDTIME [facility] Magnesium Hydroxide (Milk Of Magnesia 30 Ml Oral.Susp) 30 ml PO DAILY PRN PRN Reason: Constipation Nicotine Polacrilex (Nicotine Polacrilex 2 Mg Gum) 4 mg BUCCAL Q2H PRN PRN Reason: Nicotine Cravings Paroxetine HCl (Paroxetine Hcl 10 Mg Tablet) 10 mg PO DAILY [facility] Last Admin: 01/21/23 07:53 Dose: 10 mg Risperidone (Risperidone 0.5 Mg Tablet) 0.5 mg PO BID [facility] Last Admin: 01/21/23 07:52 Dose: 0.5 mg Allergies Allergies Allergy/AdvReac Type Severity Reaction Status Date / Time Sulfa (Sulfonamide Allergy Unknown RASH Verified 01/16/23 17:21 Antibiotics) [Sulfa(Sulfonamide Antibiotics)] Assessment & Plan Assessment & Plan (1) Bipolar disorder: Status: Acute Code(s): F31.9 - Bipolar disorder, unspecified (2) PTSD (post-traumatic stress disorder): Status: Acute Code(s): F43.10 - Post-traumatic stress disorder, unspecified Plan Patient is a 57 year old female with a history of PE, bipolar disorder, PTSD, and depression. Who presents to the ED via her due to a manic episode following an self decision to increase Paxil. -pt currently manic (mixed state); agrees to start lithium (reviewed risks/side-effects and pt agrees) -will lower, but not discontinue Paxil to avoid discontinuation syndrome; will dc if erika resolve. Hospital course: 01/19 patient has significant improved with lithium; Paxil lowered to 10 mg to avoid discontinuation syndrome but also to better ensure erika fully resolves. 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 Gave 1 time IM of Haldol 2 mg and Ativan which helped patient to come down (IM at her request). Patient agrees to medication management including Risperdal 01/21 patient appears to be more calm, organized and in behavioral control. She did sleep last night longer than usual and feels much more and control; no spasm/nonepileptic seizure events since yesterday. Met with as well and discussed case in detail. Discussed need for therapy. Continue current regimen for now PLAN: CV Q15 min checks Continue lithium to 900 mg q.h.s. -will check level/associated labs Continue Risperdal 0.5 mg b.i.d. for some emotional state stability; Continue clonazepam 0.5 mg b.i.d. to help with anxiety for few days and then DC Lowered Paxil to 10mg (to avoid dc-syndrome; will dc if erika does not resolve) Trazodone prn for sleep Conitnue lamictal 25mg daily (started by outpt provider) continue Eloquis; hx of PE will gather collateral Patient educated on: diagnosis, medication risk/benefits and therapeutic strategies Informed Consent: understands Reason for contiued inpatient stay Substantial Risk for: rapid decompensation Time Spent With Patient Time: Total time managing care of this patient today ____ minutes.
[2023-01-21 16:59] VITALS: BP 125/76; PULSE 86; RESP 18; TEMP 36.7; O2SAT 99
[2023-01-21] MEDS: Lithium Carbonate ER 450 MG TABLET.ER 900 MG PO (20:26)
[2023-01-22] MEDS: Levothyroxine Sodium 25 MCG TABLET PO (06:22)
--- NOTE | 2023-01-22 15:21 | HO.PSYCHPN ---
Subjective Subjective Date of Service: 01/22/23 Reason For Visit: SI Interim History: Met patient; discussed with team Patient remains floridly manic, disorganized, delusional; patient on the floor of her room flopping around saying she can not control herself; patient out in the hallway doing the same. She says ...every time i relax i spasm... I can not control it. she laments i'm beyond coping skills. Patient yelling, crying and hard to engage. Patient requiring much redirection from staff. Patient continues to refer to another floridly psychotic patient on the unit saying that she has this thing with her peer, that they are on a mission together trying to make everyone understand.... Discussed medications and patient says she is open to any medication that will help, Depakote, Zyprexa, Haldol all reviewed and with which patient agrees to. Mental Status Exam Mental Status Exam Narrative: Pt is alert and oriented; behavior is disorganized, labile; disheveled; mood is described as dysregulated and affect congruent, labile, tearful; eye contact limited; Speech is normal rate, volume and prosody and not pressured; return of significant psychomotor agitation present; thought process can be goal directed but is again circumstantial and tangential; Thought content is on illness, but also on delusional ideas; also feeling neglected; denies any SI/HI. Unclear regarding AVH. Patients insight and judgment impaired Diagnostics Vital Signs (24Hr): Vital Signs - 24 hr 01/21/23 16:59 Temperature 98.1 F Pulse Rate 86 Respiratory Rate 18 Blood Pressure 125/76 Pulse Oximetry 99 Oxygen Delivery Method Room Air BMI result Body Mass Index 28.9 Labs 01/16/23 18:49 01/18/23 08:17 Medications Medications Current Medications Acetaminophen (Acetaminophen 325 Mg Tablet) 650 mg PO Q6H PRN PRN Reason: Headache/Pain Mild Scale (1-3) Al Hydroxide/Mg Hydroxide (Magnesium Hydrox/Alum Hydrox 30 Ml Oral.Susp) 30 ml PO Q6H PRN PRN Reason: Heartburn/Nausea Apixaban (Apixaban 5 Mg Tablet) 5 mg PO BID [facility] Last Admin: 01/22/23 08:33 Dose: Not Given Hydroxyzine HCl (Hydroxyzine Hcl 25 Mg Tablet) 25 mg PO Q6H PRN PRN Reason: Anxiety Last Admin: 01/21/23 20:26 Dose: 25 mg Lamotrigine (Lamotrigine 25 Mg Tablet) 25 mg PO DAILY [facility] Last Admin: 01/22/23 08:33 Dose: Not Given Levothyroxine Sodium (Levothyroxine Sodium 25 Mcg Tablet) 25 mcg PO DAILY@0600 [facility] Last Admin: 01/22/23 06:22 Dose: 25 mcg [place] Carbonate ([place] Carbonate Er 450 Mg Tablet.Er) 900 mg PO BEDTIME [facility] Last Admin: 01/21/23 20:26 Dose: 900 mg Magnesium Hydroxide (Milk Of Magnesia 30 Ml Oral.Susp) 30 ml PO DAILY PRN PRN Reason: Constipation Nicotine Polacrilex (Nicotine Polacrilex 2 Mg Gum) 4 mg BUCCAL Q2H PRN PRN Reason: Nicotine Cravings Risperidone (Risperidone 0.5 Mg Tablet) 0.5 mg PO BID [facility] Last Admin: 01/22/23 08:33 Dose: Not Given Allergies Allergies Allergy/AdvReac Type Severity Reaction Status Date / Time Sulfa (Sulfonamide Allergy Unknown RASH Verified 01/16/23 17:21 Antibiotics) [Sulfa(Sulfonamide Antibiotics)] Assessment & Plan Assessment & Plan (1) Bipolar disorder: Status: Acute Code(s): F31.9 - Bipolar disorder, unspecified (2) PTSD (post-traumatic stress disorder): Status: Acute Code(s): F43.10 - Post-traumatic stress disorder, unspecified Plan Patient is a 57 year old female with a history of PE, bipolar disorder, PTSD, and depression. Who presents to the ED via her due to a manic episode following an self decision to increase Paxil. -pt currently manic (mixed state); agrees to start lithium (reviewed risks/side-effects and pt agrees) -will lower, but not discontinue Paxil to avoid discontinuation syndrome; will dc if erika resolve. Hospital course: 01/19 patient has significant improved with lithium; Paxil lowered to 10 mg to avoid discontinuation syndrome but also to better ensure erika fully resolves. 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 Gave 1 time IM of Haldol 2 mg and Ativan which helped patient to come down (IM at her request). Patient agrees to medication management including Risperdal 01/21 patient appears to be more calm, organized and in behavioral control. She did sleep last night longer than usual and feels much more and control; no spasm/nonepileptic seizure events since yesterday. Met with as well and discussed case in detail. Discussed need for therapy. Continue current regimen for now 01/22 Patient remains floridly manic, disorganized, delusional; patient on the floor of her room flopping around saying she can not control herself; patient out in the hallway doing the same. She says ...every time i relax i spasm... I can not control it. she laments i'm beyond coping skills. Patient yelling, crying and hard to engage. Patient requiring much redirection from staff. Patient continues to refer to another floridly psychotic patient on the unit saying that she has this thing with her peer, that they are on a mission together trying to make everyone understand.... Discussed medications and patient says she is open to any medication that will help, Depakote, Zyprexa, Haldol all reviewed and with which patient agrees to. -will start Zydis 5 mg b.i.d. for continued erika while lithium reaching steady state (Zydis since patient says she can not swallow pills although she has been doing so) -will discontinue Paxil to eliminate any possible agents that could prolong manic episode; will consider starting Depakote PLAN: CV Q15 min checks Continue lithium to 900 mg q.h.s. -will check level/associated labs Start Zydis 5 mg b.i.d. DC Risperdal 0.5 mg b.i.d. Continue clonazepam 0.5 mg b.i.d. to help with anxiety for few days and then DC DC Paxil to 10mg (to avoid dc-syndrome; will dc if erika does not resolve) Trazodone prn for sleep Conitnue lamictal 25mg daily (started by outpt provider) continue Eloquis; hx of PE will gather collateral Patient educated on: diagnosis and medication risk/benefits Informed Consent: understands, does not understand and further education needed Reason for contiued inpatient stay Substantial Risk for: inability to function Time Spent With Patient Time: Total time managing care of this patient today ____ minutes.
[2023-01-22] MEDS: clonazePAM 0.5 MG TABLET PO (15:39)
[2023-01-22] MEDS: OLANZapine ODT 10 MG TAB.RAPDIS 5 MG TRANSLINGU (15:41)
[2023-01-22] MEDS: Apixaban 5 MG TABLET PO (19:20)
[2023-01-22] MEDS: Lithium Carbonate ER 450 MG TABLET.ER 900 MG PO (19:25)
--- NOTE | 2023-01-22 22:27 | PC.NURSE ---
Addendum entered by Barbara Romero RN 01/22/23 22:34: Correction: Klonopin 0.5mg po was a scheduled medication. Original Note: Patient has had multiple episodes of crawling into the hallway, thrashing herself around and being resistive to staff. Patient insists no one is listening to me. She said she is asleep but having spasms and does not understand why staff doesn't believe her. Patient assisted back to her room. She wails about needed to have her here to hold her. Refused HS Zyprexa and prn Klonopin 0.5 mg po. Patient reassured by multiple staff members.
--- NOTE | 2023-01-23 01:40 | PM.EVENT ---
Event Note Date of Service: 01/23/23 Event Note: pt given lorazepam 2 im haldol 2 im med restraint do to severe agitation not responding redirection verbal deescaltion refusing po Time Spent With Patient Time: Total time managing care of this patient today _15___ minutes.
[2023-01-23] MEDS: LORazepam 2 MG/ML VIAL IM ×2 (01:50→08:44)
[2023-01-23] MEDS: Haloperidol Lactate 5 MG/ML VIAL 2 MG IM (01:50)
[2023-01-23 02:05] VITALS: BP 135/83; PULSE 101; RESP 20; TEMP 36.3; O2SAT 97
[2023-01-23 02:20] VITALS: BP 141/84; PULSE 100; RESP 18; TEMP 36.3; O2SAT 98
[2023-01-23 02:35] VITALS: BP 108/67; PULSE 98; RESP 18; TEMP 36.7; O2SAT 96
[2023-01-23 08:35] VITALS: BP 118/68; PULSE 101; RESP 16; O2SAT 99
[2023-01-23] MEDS: diphenhydrAMINE HCL 50 MG/ML VIAL 25 MG IM (08:43)
[2023-01-23] MEDS: Haloperidol Lactate 5 MG/ML VIAL IM (08:44)
[2023-01-23 08:50] VITALS: BP 118/62; PULSE 91; RESP 16; TEMP 37.1; O2SAT 99
--- NOTE | 2023-01-23 09:57 | PC.NURSE ---
Immediately post restraint in restraint chair pt was heard by this RN to say If getting restrained is the way that I get attention, then so be it.
--- NOTE | 2023-01-23 10:36 | PM.EVENT ---
Event Note Date of Service: 01/23/23 Event Note: Pt seen in follow up post restraint. She is in her room, on a mattress on the floor. She is sleeping soundly, in no acute distress, appears comfortable and without pain or discomfort. She responds briefly to her name, yet remains sleeping, changing her position slightly to increase her comfort. Time Spent With Patient Time: Total time managing care of this patient today ____ minutes.
--- NOTE | 2023-01-23 16:58 | HO.PSYCHPN ---
Subjective Subjective Date of Service: 01/23/23 Reason For Visit: SI Interim History: Patient remains manic, dysregulated and disorganized. Patient became aggressive with staff, tried to bite, threatened, could not be redirected and required both medication chemical restraint, receiving Haldol and Ativan and Benadryl. Patient slept most of the day afterwards; ticket writer briefly met with patient however she said she just wanted to sleep. Mental Status Exam Mental Status Exam Narrative: Pt is alert and oriented; behavior is disorganized, labile; unkempt; mood is described as dysregulated and affect congruent, labile, tearful; eye contact limited; Speech is normal rate, volume and prosody and not pressured; return of significant psychomotor agitation present; thought process can be goal directed but is again circumstantial and tangential; Thought content is on illness, but also on delusional ideas; also feeling neglected; denies any SI/HI. Unclear regarding AVH. Patients insight and judgment impaired Diagnostics Vital Signs (24Hr): Vital Signs - 24 hr 01/23/23 02:05 01/23/23 02:20 01/23/23 02:35 Temperature 97.3 F 97.3 F 98.1 F Pulse Rate 101 H 100 98 Respiratory Rate 20 18 18 Blood Pressure 135/83 141/84 H 108/67 Pulse Oximetry 97 98 96 Oxygen Delivery Method Room Air Room Air Room Air 01/23/23 02:50 01/23/23 08:35 01/23/23 08:50 Temperature 98.7 F Pulse Rate 101 H 91 Respiratory Rate 16 16 Blood Pressure 118/68 118/62 Pulse Oximetry 99 99 Oxygen Delivery Method [place] Mask Room Air Room Air BMI result Body Mass Index 28.9 Labs 01/16/23 18:49 01/18/23 08:17 Medications Medications Current Medications Acetaminophen (Acetaminophen 325 Mg Tablet) 650 mg PO Q6H PRN PRN Reason: Headache/Pain Mild Scale (1-3) Al Hydroxide/Mg Hydroxide (Magnesium Hydrox/Alum Hydrox 30 Ml Oral.Susp) 30 ml PO Q6H PRN PRN Reason: Heartburn/Nausea Apixaban (Apixaban 5 Mg Tablet) 5 mg PO BID [facility] Last Admin: 01/23/23 09:38 Dose: Not Given Clonazepam (Clonazepam 0.5 Mg Tablet) 0.5 mg PO BID [facility] Last Admin: 04/11/23 09:38 Dose: Not Given Divalproex Sodium (Divalproex Sodium Er 500 Mg Tab.Er.24h) 500 mg PO BEDTIME [facility] Haloperidol (Haloperidol 5 Mg Tablet) 5 mg PO TID PRN PRN Reason: agitation Lamotrigine (Lamotrigine 25 Mg Tablet) 25 mg PO DAILY [facility] Last Admin: 01/23/23 09:39 Dose: Not Given Levothyroxine Sodium (Levothyroxine Sodium 25 Mcg Tablet) 25 mcg PO DAILY@0900 [facility] [place] Carbonate ([place] Carbonate Er 450 Mg Tablet.Er) 900 mg PO BEDTIME [facility] Last Admin: 01/22/23 19:25 Dose: 900 mg Magnesium Hydroxide (Milk Of Magnesia 30 Ml Oral.Susp) 30 ml PO DAILY PRN PRN Reason: Constipation Nicotine Polacrilex (Nicotine Polacrilex 2 Mg Gum) 4 mg BUCCAL Q2H PRN PRN Reason: Nicotine Cravings Allergies Allergies Allergy/AdvReac Type Severity Reaction Status Date / Time Sulfa (Sulfonamide Allergy Unknown RASH Verified 01/16/23 17:21 Antibiotics) [Sulfa(Sulfonamide Antibiotics)] Assessment & Plan Assessment & Plan (1) Bipolar disorder: Status: Acute Code(s): F31.9 - Bipolar disorder, unspecified (2) PTSD (post-traumatic stress disorder): Status: Acute Code(s): F43.10 - Post-traumatic stress disorder, unspecified Plan Patient is a 57 year old female with a history of PE, bipolar disorder, PTSD, and depression. Who presents to the ED via her due to a manic episode following an self decision to increase Paxil. -pt currently manic (mixed state); agrees to start lithium (reviewed risks/side-effects and pt agrees) -will lower, but not discontinue Paxil to avoid discontinuation syndrome; will dc if erika resolve. Hospital course: 01/19 patient has significant improved with lithium; Paxil lowered to 10 mg to avoid discontinuation syndrome but also to better ensure erika fully resolves. 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 Gave 1 time IM of Haldol 2 mg and Ativan which helped patient to come down (IM at her request). Patient agrees to medication management including Risperdal 01/21 patient appears to be more calm, organized and in behavioral control. She did sleep last night longer than usual and feels much more and control; no spasm/nonepileptic seizure events since yesterday. Met with as well and discussed case in detail. Discussed need for therapy. Continue current regimen for now 01/22 Patient remains floridly manic, disorganized, delusional; patient on the floor of her room flopping around saying she can not control herself; patient out in the hallway doing the same. She says ...every time i relax i spasm... I can not control it. she laments i'm beyond coping skills. Patient yelling, crying and hard to engage. Patient requiring much redirection from staff. Patient continues to refer to another floridly psychotic patient on the unit saying that she has this thing with her peer, that they are on a mission together trying to make everyone understand.... Discussed medications and patient says she is open to any medication that will help, Depakote, Zyprexa, Haldol all reviewed and with which patient agrees to. -will start Zydis 5 mg b.i.d. for continued erika while lithium reaching steady state (Zydis since patient says she can not swallow pills although she has been doing so) -will discontinue Paxil to eliminate any possible agents that could prolong manic episode; will consider starting Depakote 01/23 patient remains manic, not sleeping at night, disorganized and very dysregulated; today she became aggressive with staff, trying to assault, bite and required chemical and physical restraint. Patient receive Haldol and Ativan, afterwards patient sleeping most of the day. While lithium is still yet to achieve steady state, patient is becoming aggressive and dangerous and lithium is not proving effective fast enough; thus will add Depakote to regimen; will discontinue Shahla S; will change p.r.n. to Haldol since this has seemingly proved sedating will help keep her and milieu safe and if help patient sleep may also help break erika. PLAN: CV Q15 min checks Continue lithium to 900 mg q.h.s. -will check level/associated labs Start Depakote ER 500 mg q.h.s. (LFTs reviewed and WNL) Had Haldol 5 mg b.i.d. p.r.n. Continue clonazepam 0.5 mg b.i.d. to help with anxiety for few days and then DC Trazodone prn for sleep Conitnue lamictal 25mg daily (started by outpt provider) continue Eloquis; hx of PE DC Paxil to 10mg (to avoid dc-syndrome; will dc if erika does not resolve) Discontinue Zydis DC Risperda (only ever given at low dose) Patient educated on: diagnosis Informed Consent: understands and further education needed Reason for contiued inpatient stay Substantial Risk for: inability to function Time Spent With Patient Time: Total time managing care of this patient today ____ minutes.
[2023-01-23] MEDS: Acetaminophen 325 MG TABLET 650 MG PO (17:33)
[2023-01-23] MEDS: HaloperidoL 5 MG TABLET PO (17:34)
[2023-01-23 18:00] VITALS: BP 121/62; PULSE 107; TEMP 36.3
[2023-01-23] MEDS: Divalproex Sodium ER 500 MG TAB.ER.24H PO (20:44)
[2023-01-23] MEDS: Apixaban 5 MG TABLET PO (20:45)
[2023-01-23] MEDS: Lithium Carbonate ER 450 MG TABLET.ER 900 MG PO (20:45)
[2023-01-23] MEDS: clonazePAM 0.5 MG TABLET PO (20:45)
[2023-01-24] MEDS: Acetaminophen 325 MG TABLET 650 MG PO (03:12)
[2023-01-24] MEDS: Milk of Magnesia 30 ML ORAL.SUSP PO (03:34)
[2023-01-24] MEDS: clonazePAM 0.5 MG TABLET PO (08:03)
[2023-01-24] MEDS: Apixaban 5 MG TABLET PO (08:03)
[2023-01-24] MEDS: lamoTRIgine 25 MG TABLET PO (08:03)
[2023-01-24] MEDS: Levothyroxine Sodium 25 MCG TABLET PO (08:03)
[2023-01-24 08:06] VITALS: BP 137/73; PULSE 90; RESP 16; TEMP 36.6; O2SAT 95
--- NOTE | 2023-01-24 09:39 | P.PNPSI_ITS ---
Subjective Subjective Date of Service: 01/24/23 Reason For Visit: SI Interim History: Met with patient; discussed with staff pt started out on the floor saying she can't walk; however, after family visit, she was ambulated w/out trouble; no other dysregulated episodes today; pt says Depakote seems to be helping. Mental Status Exam Mental Status Exam Narrative: Pt is alert and oriented; behavior is more organized though still labile; adequately groomed; mood is described as dysregulated but less so and affect congruent, labile, tearful; eye contact limited; Speech is normal rate, volume and prosody and not pressured; less psychomotor agitation; thought process can be goal directed but is again circumstantial and tangential; Thought content is on illness, but also on delusional ideas; also feeling neglected; denies any SI/HI. Unclear regarding AVH. Patients insight and judgment impaired but maybe improving Diagnostics Vital Signs (24Hr): Vital Signs - 24 hr 01/23/23 18:00 01/24/23 08:06 Temperature 97.3 F 97.8 F Pulse Rate 107 H 90 Respiratory Rate 16 Blood Pressure 121/62 137/73 Pulse Oximetry 95 Oxygen Delivery Method Room Air BMI result Body Mass Index 28.9 Labs 01/16/23 18:49 01/18/23 08:17 Medications Medications Current Medications Acetaminophen (Acetaminophen 325 Mg Tablet) 650 mg PO Q6H PRN PRN Reason: Headache/Pain Mild Scale (1-3) Last Admin: 01/24/23 03:12 Dose: 650 mg Al Hydroxide/Mg Hydroxide (Magnesium Hydrox/Alum Hydrox 30 Ml Oral.Susp) 30 ml PO Q6H PRN PRN Reason: Heartburn/Nausea Apixaban (Apixaban 5 Mg Tablet) 5 mg PO BID [facility] Last Admin: 01/24/23 08:03 Dose: 5 mg Clonazepam (Clonazepam 0.5 Mg Tablet) 0.5 mg PO BID [facility] Last Admin: 01/24/23 08:03 Dose: 0.5 mg Divalproex Sodium (Divalproex Sodium Er 500 Mg Tab.Er.24h) 500 mg PO BEDTIME [facility] Last Admin: 01/23/23 20:44 Dose: 500 mg Haloperidol (Haloperidol 5 Mg Tablet) 5 mg PO TID PRN PRN Reason: agitation Last Admin: 01/23/23 17:34 Dose: 5 mg Lamotrigine (Lamotrigine 25 Mg Tablet) 25 mg PO DAILY [facility] Last Admin: 01/24/23 08:03 Dose: 25 mg Levothyroxine Sodium (Levothyroxine Sodium 25 Mcg Tablet) 25 mcg PO DAILY@0900 [facility] Last Admin: 01/24/23 08:03 Dose: 25 mcg [place] Carbonate ([place] Carbonate Er 450 Mg Tablet.Er) 900 mg PO BEDTIME [facility] Last Admin: 01/23/23 20:45 Dose: 900 mg Magnesium Hydroxide (Milk Of Magnesia 30 Ml Oral.Susp) 30 ml PO DAILY PRN PRN Reason: Constipation Last Admin: 01/24/23 03:34 Dose: 30 ml Nicotine Polacrilex (Nicotine Polacrilex 2 Mg Gum) 4 mg [place] Q2H PRN PRN Reason: Nicotine Cravings Allergies Allergies Allergy/AdvReac Type Severity Reaction Status Date / Time Sulfa (Sulfonamide Allergy Unknown RASH Verified 01/16/23 17:21 Antibiotics) [Sulfa(Sulfonamide Antibiotics)] Assessment & Plan Assessment & Plan (1) Bipolar disorder: Status: Acute Code(s): F31.9 - Bipolar disorder, unspecified (2) PTSD (post-traumatic stress disorder): Status: Acute Code(s): F43.10 - Post-traumatic stress disorder, unspecified Plan Patient is a 57 year old female with a history of PE, bipolar disorder, PTSD, and depression. Who presents to the ED via her due to a manic episode following an self decision to increase Paxil. -pt currently manic (mixed state); agrees to start lithium (reviewed risks/side- effects and pt agrees) -will lower, but not discontinue Paxil to avoid discontinuation syndrome; will dc if erika resolve. Hospital course: 01/19 patient has significant improved with lithium; Paxil lowered to 10 mg to avoid discontinuation syndrome but also to better ensure erika fully resolves. 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 Gave 1 time IM of Haldol 2 mg and Ativan which helped patient to come down (IM at her request). Patient agrees to medication management including Risperdal 01/21 patient appears to be more calm, organized and in behavioral control. She did sleep last night longer than usual and feels much more and control; no spasm/nonepileptic seizure events since yesterday. Met with as well and discussed case in detail. Discussed need for therapy. Continue current regimen for now 01/22 Patient remains floridly manic, disorganized, delusional; patient on the floor of her room flopping around saying she can not control herself; patient out in the hallway doing the same. She says ...every time i relax i spasm... I can not control it. she laments i'm beyond coping skills. Patient yelling, crying and hard to engage. Patient requiring much redirection from staff. Patient continues to refer to another floridly psychotic patient on the unit say ing that she has this thing with her peer, that they are on a mission together trying to make everyone understand.... Discussed medications and patient says she is open to any medication that will help, Depakote, Zyprexa, Haldol all reviewed and with which patient agrees to. -will start Zydis 5 mg b.i.d. for continued erika while lithium reaching steady state (Zydis since patient says she can not swallow pills although she has been doing so) -will discontinue Paxil to eliminate any possible agents that could prolong manic episode; will consider starting Depakote 01/23 patient remains manic, not sleeping at night, disorganized and very dysregulated; today she became aggressive with staff, trying to assault, bite and required chemical and physical restraint. Patient receive Haldol and At nishi, afterwards patient sleeping most of the day. While lithium is still yet to achieve steady state, patient is becoming aggressive and dangerous and lithium is not proving effective fast enough; thus will add Depakote to regimen; will discontinue Shahla S; will change p.r.n. to Haldol since this has seemingly proved sedating will help keep her and milieu safe and if help patient sleep may also help break erika. 01/24 maybe some improvement with starting depakote; continue current tx plan PLAN: CV Q15 min checks Continue lithium to 900 mg q.h.s. -will check level/associated labs continue Depakote ER 500 mg q.h.s. (LFTs reviewed and WNL) Had Haldol 5 mg b.i.d. p.r.n. Continue clonazepam 0.5 mg b.i.d. to help with anxiety for few days and then DC Trazodone prn for sleep Conitnue lamictal 25mg daily (started by outpt provider) continue Eloquis; hx of PE DC Paxil to 10mg (to avoid dc-syndrome; will dc if erika does not resolve) Discontinue Zydis DC Risperda (only ever given at low dose) Patient educated on: diagnosis and medication risk/benefits Informed Consent: understands and further education needed Reason for contiued inpatient stay Substantial Risk for: inability to function Time Spent With Patient Time: Total time managing care of this patient today ____ minutes.
[2023-01-24 18:00] VITALS: BP 165/78; PULSE 93; RESP 16; O2SAT 98
--- NOTE | 2023-01-25 00:14 | PC.NURSE ---
Late entry Chemical/ mechanical restraint note from 01/23/23 At start of shift at 11pm PT observed to be placing self on floor and rolling around, refusing redirection and yelling. This continued until 120 am, at this time PT getting agitated, upset, trying to go into other PTs rooms, trying to get out of door to exit the unit, yelling, and swinging at staff. PT offered prn medications, food, drink, 1:1 with staff, quiet space and diversional activities. Security notified and 2 security responded to unit. Staff unable to deescalate PT. MD Patel notified and IM orders given for 2mg of ativan and 2 mg of haldol stat. PT given 2 mg ativan in L deltoid and 2mg of haldol in R deltoid at 1:50 with security present and PT held for administration of medication by 2 staff and 2 security. PT still agitated and trying to hit staff and at 1:57 was placed in restraint chair, PT began to calm down and 1 arm was removed at 2:20 followed by 1 foot and PT was out of chair by 2:25. PT stating to RN that if this is what 'I need to do for attention then so be it.' No injuries reported or noted on PT or staff. VS taken at 2:05, 220, and 235. VS refused at 250. VS charted at appropriate times. PT agreed to sleep on her mattress in Group room B for the night. PT was sleeping by 3am. PT safety tool updated. PT called per PT request and message left to call M5 back.
[2023-01-25] MEDS: Acetaminophen 325 MG TABLET 650 MG PO ×2 (01:01→22:21)
[2023-01-25] MEDS: clonazePAM 0.5 MG TABLET PO (01:05)
[2023-01-25 08:53] VITALS: BP 148/76; PULSE 85; RESP 16; TEMP 36.7; O2SAT 96
[2023-01-25] MEDS: Apixaban 5 MG TABLET PO ×2 (09:05→20:22)
[2023-01-25] MEDS: Levothyroxine Sodium 25 MCG TABLET PO (09:05)
[2023-01-25] MEDS: lamoTRIgine 25 MG TABLET PO (09:05)
--- NOTE | 2023-01-25 13:15 | PC.NURSE ---
pt lowered self to ground and began rolling, yelling, and flailing arms. Pt was not redirectable at that time and remained on the floor for several minutes. At 11am pt had a visit from was was able to be escorted in the arms of [employer] to the group room. Nurse was approached by several minutes later to discuss recent episodes of lowering self to ground and treatment plan. Pt voiced her concern of wanting to leave and continue treatment with Partial hospitalization instead of impatient. Nurse explained that partial may be part of discharge planning and that safety of the patient and milieu were of utmost importance and that laying on the ground was not conducive to treatment goals or safety. Pt reported that a calm and nurturing voice is helpful and she requests no one touch her unless absolutely necessary..
[2023-01-25 18:00] VITALS: BP 164/88; PULSE 80; RESP 16
--- NOTE | 2023-01-25 19:26 | HO.PSYCHPN ---
Subjective Subjective Date of Service: 01/25/23 Reason For Visit: SI Subjective Notes: Conditional Voluntary Healthcare Proxy: No Guardianship: No Medical Problems Affecting Mental Status: No Interim History: Exit seeking, attempting to leave the unit, labile mood, periods of severe lability, [id number] to be assisted from the exit to the conference room. Time spent laying on the floor by the exit-regressed, increase in labile agitation when visitied. Team reports incontinence, anxiety, without SI,HI. Responds to team support and care, however, clearly in severe distress. Refusal of [place], Depakote, Klonopin 01/24 evening. Accepted Lamictal Side effects from medications: No Attending Groups: No Review of Systems Acute medical concerns: No Medical Review of Systems: unchanged Mental Status Exam Mental Status Exam Patient Appearance: Fatigued and Inappropriate Patient Orientation: Person and Place Level of Consciousness: Restless Patient Behavior: Restless, Anxious, Resistive to Care, Fatigued, Distractible, Crying, Impulsive and Poor Eye Contact Mood Description: Labile Affect Description: Labile Patient Cognition Impaired: No Ability to Follow Directions: Poor Speech Pattern: Delayed Memory Description: Episodic Impaired Delusions: Present Perceptual Disturbances: Depersonalization and Derealization Thought Process: Illogical and Distracted Thought Content: positive for Perseveration Depressive Symptoms: Increased Anxiety, Increased Irritability, Crying Spells, Unhappiness, Increased Fatigue and Difficulty Concentrating Abnormal Motor Activity Signs and Symptoms: Agitation and Restlessness Judgement: Poor Diagnostics Vital Signs (24Hr): Vital Signs - 24 hr 01/25/23 08:53 Temperature 98.1 F Pulse Rate 85 Respiratory Rate 16 Blood Pressure 148/76 H Pulse Oximetry 96 Oxygen Delivery Method Room Air BMI result Body Mass Index 28.9 Labs 01/16/23 18:49 01/18/23 08:17 Imaging Radiology Impressions: ITS Impressions Chest X-Ray 01/25/23 13:11 IMPRESSION: Unremarkable examination. Medications Medications Current Medications Acetaminophen (Acetaminophen 325 Mg Tablet) 650 mg PO Q6H PRN PRN Reason: Headache/Pain Mild Scale (1-3) Last Admin: 01/25/23 01:01 Dose: 650 mg Al Hydroxide/Mg Hydroxide (Magnesium Hydrox/Alum Hydrox 30 Ml Oral.Susp) 30 ml PO Q6H PRN PRN Reason: Heartburn/Nausea Apixaban (Apixaban 5 Mg Tablet) 5 mg PO BID [facility] Last Admin: 01/25/23 09:05 Dose: 5 mg Clonazepam (Clonazepam 0.5 Mg Tablet) 0.5 mg PO BID [facility] Last Admin: 01/25/23 09:06 Dose: Not Given Divalproex Sodium (Divalproex Sodium Er 500 Mg Tab.Er.24h) 500 mg PO BEDTIME [facility] Last Admin: 01/24/23 20:08 Dose: Not Given Haloperidol (Haloperidol 5 Mg Tablet) 5 mg PO TID PRN PRN Reason: agitation Last Admin: 01/23/23 17:34 Dose: 5 mg Lamotrigine (Lamotrigine 25 Mg Tablet) 25 mg PO DAILY [facility] Last Admin: 01/25/23 09:05 Dose: 25 mg Levothyroxine Sodium (Levothyroxine Sodium 25 Mcg Tablet) 25 mcg PO DAILY@0900 [facility] Last Admin: 01/25/23 09:05 Dose: 25 mcg [place] Carbonate ([place] Carbonate Er 450 Mg Tablet.Er) 900 mg PO BEDTIME [facility] Last Admin: 01/24/23 20:08 Dose: Not Given Magnesium Hydroxide (Milk Of Magnesia 30 Ml Oral.Susp) 30 ml PO DAILY PRN PRN Reason: Constipation Last Admin: 01/24/23 03:34 Dose: 30 ml Nicotine Polacrilex (Nicotine Polacrilex 2 Mg Gum) 4 mg [place] Q2H PRN PRN Reason: Nicotine Cravings Allergies Allergies Allergy/AdvReac Type Severity Reaction Status Date / Time Sulfa (Sulfonamide Allergy Unknown RASH Verified 01/16/23 17:21 Antibiotics) [Sulfa(Sulfonamide Antibiotics)] Assessment & Plan Assessment & Plan (1) Bipolar disorder: Status: Acute Code(s): F31.9 - Bipolar disorder, unspecified (2) PTSD (post-traumatic stress disorder): Status: Acute Code(s): F43.10 - Post-traumatic stress disorder, unspecified Plan Patient is a 57 year old female with a history of PE, bipolar disorder, PTSD, and depression. Who presents to the ED via her due to a manic episode following an self decision to increase Paxil. -pt currently manic (mixed state); agrees to start lithium (reviewed risks/side-effects and pt agrees) -will lower, but not discontinue Paxil to avoid discontinuation syndrome; will dc if erika resolve. Hospital course: 01/19 patient has significant improved with lithium; Paxil lowered to 10 mg to avoid discontinuation syndrome but also to better ensure erika fully resolves. 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 Gave 1 time IM of Haldol 2 mg and Ativan which helped patient to come down (IM at her request). Patient agrees to medication management including Risperdal 01/21 patient appears to be more calm, organized and in behavioral control. She did sleep last night longer than usual and feels much more and control; no spasm/nonepileptic seizure events since yesterday. Met with as well and discussed case in detail. Discussed need for therapy. Continue current regimen for now 01/22 Patient remains floridly manic, disorganized, delusional; patient on the floor of her room flopping around saying she can not control herself; patient out in the hallway doing the same. She says ...every time i relax i spasm... I can not control it. she laments i'm beyond coping skills. Patient yelling, crying and hard to engage. Patient requiring much redirection from staff. Patient continues to refer to another floridly psychotic patient on the unit saying that she has this thing with her peer, that they are on a mission together trying to make everyone understand.... Discussed medications and patient says she is open to any medication that will help, Depakote, Zyprexa, Haldol all reviewed and with which patient agrees to. -will start Zydis 5 mg b.i.d. for continued erika while lithium reaching steady state (Zydis since patient says she can not swallow pills although she has been doing so) -will discontinue Paxil to eliminate any possible agents that could prolong manic episode; will consider starting Depakote 01/23 patient remains manic, not sleeping at night, disorganized and very dysregulated; today she became aggressive with staff, trying to assault, bite and required chemical and physical restraint. Patient receive Haldol and Ativan, afterwards patient sleeping most of the day. While lithium is still yet to achieve steady state, patient is becoming aggressive and dangerous and lithium is not proving effective fast enough; thus will add Depakote to regimen; will discontinue Shahla S; will change p.r.n. to Haldol since this has seemingly proved sedating will help keep her and milieu safe and if help patient sleep may also help break erika. 01/24 maybe some improvement with starting depakote; continue current tx plan 01/25/23- Continue current regime, encourage compliance with plan of care. PLAN: CV Q15 min checks Continue lithium to 900 mg q.h.s. -will check level/associated labs continue Depakote ER 500 mg q.h.s. (LFTs reviewed and WNL) Had Haldol 5 mg b.i.d. p.r.n. Continue clonazepam 0.5 mg b.i.d. to help with anxiety for few days and then DC Trazodone prn for sleep Conitnue lamictal 25mg daily (started by outpt provider) continue Eloquis; hx of PE DC Paxil to 10mg (to avoid dc-syndrome; will dc if erika does not resolve) Discontinue Zydis DC Risperda (only ever given at low dose) Reason for contiued inpatient stay Substantial Risk for: rapid decompensation Time Spent With Patient Time: Total time managing care of this patient today ____ minutes.
[2023-01-25] MEDS: Lithium Carbonate ER 450 MG TABLET.ER 900 MG PO (20:22)
[2023-01-25] MEDS: Divalproex Sodium ER 500 MG TAB.ER.24H PO (20:23)
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
[2023-01-26] MEDS: clonazePAM 0.5 MG TABLET PO ×2 (08:32→20:01)
[2023-01-26] MEDS: Apixaban 5 MG TABLET PO ×2 (08:32→20:02)
[2023-01-26] MEDS: Levothyroxine Sodium 25 MCG TABLET PO (08:32)
[2023-01-26] MEDS: lamoTRIgine 25 MG TABLET PO (08:32)
[2023-01-26 08:57] LABS: Ammonia 38 umol/L (13-55)
[2023-01-26 09:02] LABS: Lithium 0.66 mmol/L (0.60-1.20)
[2023-01-26 09:17] LABS: Alanine Aminotransferase 35 U/L (0-31); Albumin Level 4.1 g/dL (3.5-5.0); Alkaline Phosphatase 61 U/L (39-117); Aspartate Amino Transferase 32 U/L (5-31); Bilirubin Direct 0.1 mg/dL (0.0-0.5); Bilirubin Total 0.5 mg/dL (0.0-1.0); Blood Urea Nitrogen 15 mg/dL (9-16); Creatinine Clr Calc Pharmacy 65.6; Estimated Glomerular Filt Rate > 60; Total Protein 6.2 g/dL (6.5-8.0)
[2023-01-26 09:33] LABS: TSH reflex Free T4 5.54 uIU/mL (0.32-4.0)
[2023-01-26 09:47] VITALS: BP 163/78; PULSE 85; RESP 18; TEMP 36.6; O2SAT 99
[2023-01-26 10:51] LABS: Free T4 (Free Thyroxine) 0.92 ng/dL (0.71-1.85)
[2023-01-26] MEDS: HaloperidoL 1 MG TABLET 2 MG PO ×2 (11:57→20:02)
[2023-01-26] MEDS: LORazepam 1 MG TABLET PO ×2 (11:57→20:02)
[2023-01-26] MEDS: HaloperidoL 5 MG TABLET PO (15:49)
[2023-01-26 18:00] VITALS: BP 173/96; PULSE 96; TEMP 36.2; O2SAT 96
[2023-01-26] MEDS: Lithium Carbonate ER 450 MG TABLET.ER 900 MG PO (20:02)
[2023-01-26] MEDS: Divalproex Sodium ER 500 MG TAB.ER.24H 1000 MG PO (20:02)
--- NOTE | 2023-01-26 20:10 | PC.NURSE ---
pt only wanted to take half a dose of lithium. pt refused other half.
[2023-01-27 08:11] VITALS: BP 128/74; PULSE 74; RESP 16; TEMP 36.7; O2SAT 98
[2023-01-27] MEDS: Apixaban 5 MG TABLET PO ×2 (08:28→19:03)
[2023-01-27] MEDS: Levothyroxine Sodium 25 MCG TABLET PO (08:28)
[2023-01-27] MEDS: clonazePAM 0.5 MG TABLET PO ×2 (08:29→19:03)
[2023-01-27] MEDS: lamoTRIgine 25 MG TABLET PO (08:29)
[2023-01-27] MEDS: HaloperidoL 5 MG TABLET PO (12:51)
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
[2023-01-27] MEDS: Lidocaine 4 % Patch ADH..PATCH 1 PATCH TRANSDERMA (17:21)
[2023-01-27 18:00] VITALS: BP 126/81; PULSE 79; RESP 14; TEMP 37.1
[2023-01-27] MEDS: Acetaminophen 325 MG TABLET 650 MG PO (19:00)
[2023-01-27] MEDS: Lithium Carbonate ER 450 MG TABLET.ER 900 MG PO (19:01)
[2023-01-27] MEDS: Divalproex Sodium ER 500 MG TAB.ER.24H 1000 MG PO (19:01)
[2023-01-27] MEDS: HaloperidoL 1 MG TABLET 2 MG PO (19:02)
[2023-01-27] MEDS: LORazepam 1 MG TABLET PO (19:03)
[2023-01-28] MEDS: Acetaminophen 325 MG TABLET 650 MG PO ×2 (05:14→20:21)
[2023-01-28 08:49] VITALS: BP 134/60; PULSE 75; RESP 16; TEMP 36.4; O2SAT 98
[2023-01-28] MEDS: Levothyroxine Sodium 25 MCG TABLET PO (08:51)
[2023-01-28] MEDS: clonazePAM 0.5 MG TABLET PO ×2 (08:51→20:22)
[2023-01-28] MEDS: lamoTRIgine 25 MG TABLET PO (08:51)
[2023-01-28] MEDS: Apixaban 5 MG TABLET PO ×2 (08:51→20:24)
[2023-01-28] MEDS: Lidocaine 4 % Patch ADH..PATCH 1 PATCH TRANSDERMA (08:51)
--- NOTE | 2023-01-28 10:30 | HO.PSYCHPN ---
Subjective Subjective Date of Service: 01/28/23 Reason For Visit: SI Medication Compliance: Yes Side effects from medications: No Attending Groups: No Review of Systems Acute medical concerns: No Mental Status Exam Mental Status Exam Narrative: Patient seen, chart reviewed, case discussed with RN. Patient reports sleeping better after lidocaine patch applied. States she did not fall out of bed. States she wants people to believe me, that my episodes are real. Discussed that all such episodes are real but may have different causes. Eating OK Patient Appearance: Unkempt Patient Orientation: Person, Place, Time and Situation Level of Consciousness: Alert Patient Behavior: Fatigued and Isolative Mood Description: Depressed Affect Description: Depressed Patient Cognition Impaired: No Speech Pattern: Clear and Soft-Spoken Hallucinations: None Delusions: Not Present Thought Process: Linear Thought Content: positive for Poverty of Content Depressive Symptoms: Increased Anxiety and Loss of Energy Abnormal Motor Activity Signs and Symptoms: Psychomotor Retardation Judgement: Fair Diagnostics Vital Signs (24Hr): Vital Signs - 24 hr 01/27/23 18:00 01/28/23 08:49 Temperature 98.7 F 97.6 F Pulse Rate 79 75 Respiratory Rate 14 16 Blood Pressure 126/81 134/60 Pulse Oximetry 98 Oxygen Delivery Method Room Air BMI result Body Mass Index 28.9 Labs 01/16/23 18:49 01/26/23 08:34 Labs: Laboratory Results - last 48 hr 01/26/23 08:34 Free T4 0.92 Imaging Radiology Impressions: ITS Impressions Chest X-Ray 01/25/23 13:11 IMPRESSION: Unremarkable examination. Medications Medications Current Medications Acetaminophen (Acetaminophen 325 Mg Tablet) 650 mg PO Q6H PRN PRN Reason: Headache/Pain Mild Scale (1-3) Last Admin: 01/28/23 05:14 Dose: 650 mg Al Hydroxide/Mg Hydroxide (Magnesium Hydrox/Alum Hydrox 30 Ml Oral.Susp) 30 ml PO Q6H PRN PRN Reason: Heartburn/Nausea Apixaban (Apixaban 5 Mg Tablet) 5 mg PO BID [facility] Last Admin: 01/28/23 08:51 Dose: 5 mg Clonazepam (Clonazepam 0.5 Mg Tablet) 0.5 mg PO BID [facility] Last Admin: 01/28/23 08:51 Dose: 0.5 mg Divalproex Sodium (Divalproex Sodium Er 500 Mg Tab.Er.24h) 1,000 mg PO BEDTIME [facility] Last Admin: 01/27/23 19:01 Dose: 1,000 mg Haloperidol (Haloperidol 5 Mg Tablet) 5 mg PO TID PRN PRN Reason: agitation Last Admin: 01/27/23 12:51 Dose: 5 mg Haloperidol (Haloperidol 1 Mg Tablet) 2 mg PO BEDTIME [facility] Last Admin: 01/27/23 19:02 Dose: 2 mg Lamotrigine (Lamotrigine 25 Mg Tablet) 25 mg PO DAILY [facility] Last Admin: 01/28/23 08:51 Dose: 25 mg Levothyroxine Sodium (Levothyroxine Sodium 25 Mcg Tablet) 25 mcg PO DAILY@0900 [facility] Last Admin: 01/28/23 08:51 Dose: 25 mcg Lidocaine (Lidocaine 4 % Patch Adh..Patch) 1 patch TRANSDERMA DAILY [facility]; Protocol Last Admin: 01/28/23 08:51 Dose: 1 patch [place] Carbonate ([place] Carbonate Er 450 Mg Tablet.Er) 900 mg PO BEDTIME [facility] Last Admin: 01/27/23 19:01 Dose: 900 mg Lorazepam (Lorazepam 1 Mg Tablet) 1 mg PO BEDTIME [facility] Last Admin: 01/27/23 19:03 Dose: 1 mg Magnesium Hydroxide (Milk Of Magnesia 30 Ml Oral.Susp) 30 ml PO DAILY PRN PRN Reason: Constipation Last Admin: 01/24/23 03:34 Dose: 30 ml Nicotine Polacrilex (Nicotine Polacrilex 2 Mg Gum) 4 mg BUCCAL Q2H PRN PRN Reason: Nicotine Cravings Allergies Allergies Allergy/AdvReac Type Severity Reaction Status Date / Time Sulfa (Sulfonamide Allergy Unknown RASH Verified 01/16/23 17:21 Antibiotics) [Sulfa(Sulfonamide Antibiotics)] Assessment & Plan Assessment & Plan (1) Bipolar disorder: Status: Acute Code(s): F31.9 - Bipolar disorder, unspecified (2) PTSD (post-traumatic stress disorder): Status: Acute Code(s): F43.10 - Post-traumatic stress disorder, unspecified Plan Patient is a 57 year old female with a history of PE, bipolar disorder, PTSD, and depression. Who presents to the ED via her due to a manic episode following an self decision to increase Paxil. -pt currently manic (mixed state); agrees to start lithium (reviewed risks/side-effects and pt agrees) -will lower, but not discontinue Paxil to avoid discontinuation syndrome; will dc if erika resolve. Hospital course: 01/19 patient has significant improved with lithium; Paxil lowered to 10 mg to avoid discontinuation syndrome but also to better ensure erika fully resolves. 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 Gave 1 time IM of Haldol 2 mg and Ativan which helped patient to come down (IM at her request). Patient agrees to medication management including Risperdal 01/21 patient appears to be more calm, organized and in behavioral control. She did sleep last night longer than usual and feels much more and control; no spasm/nonepileptic seizure events since yesterday. Met with as well and discussed case in detail. Discussed need for therapy. Continue current regimen for now 01/22 Patient remains floridly manic, disorganized, delusional; patient on the floor of her room flopping around saying she can not control herself; patient out in the hallway doing the same. She says ...every time i relax i spasm... I can not control it. she laments i'm beyond coping skills. Patient yelling, crying and hard to engage. Patient requiring much redirection from staff. Patient continues to refer to another floridly psychotic patient on the unit saying that she has this thing with her peer, that they are on a mission together trying to make everyone understand.... Discussed medications and patient says she is open to any medication that will help, Depakote, Zyprexa, Haldol all reviewed and with which patient agrees to. -will start Zydis 5 mg b.i.d. for continued erika while lithium reaching steady state (Zydis since patient says she can not swallow pills although she has been doing so) -will discontinue Paxil to eliminate any possible agents that could prolong manic episode; will consider starting Depakote 01/23 patient remains manic, not sleeping at night, disorganized and very dysregulated; today she became aggressive with staff, trying to assault, bite and required chemical and physical restraint. Patient receive Haldol and Ativan, afterwards patient sleeping most of the day. While lithium is still yet to achieve steady state, patient is becoming aggressive and dangerous and lithium is not proving effective fast enough; thus will add Depakote to regimen; will discontinue Shahla S; will change p.r.n. to Haldol since this has seemingly proved sedating will help keep her and milieu safe and if help patient sleep may also help break erika. 01/24 maybe some improvement with starting depakote; continue current tx plan 01/25/23- Continue current regime, encourage compliance with plan of care. 01/26 a little more organized today; cautiously hopeful that Depakote is helping. Will increase Depakote to a 1000 mg q.h.s.; will repeat labs. Patient asked scientific technical writer to call her brother, discussed case and gave phone number. [place] level WNL (bun/cr wnl); however TSH elevated 2.71 to 5.54 (free T4 within normal limits; no symptoms of hypothyroidism) Depakote level subtherapeutic; Lft's grossly WNL (very mildly elevated) 01/27 No med changes, depakote just increased 01/28 lamictal increased to 50 mg PLAN: CV Q15 min checks -Adding Haldol 2 mg q.h.s. plus Ativan 1 mg q.h.s. to better help with sleep which will help break erika -Continue lithium to 900 mg q.h.s.(however will likely taper hoping that Depakote 2 will work is a monotherapy; also lithium seems to have increased TSH) -will check level/associated labs -INCREASED TO Depakote ER 1000 mg q.h.s. (LFTs reviewed and WNL) Otherwise: Haldol 5 mg b.i.d. p.r.n. Continue clonazepam 0.5 mg b.i.d. to help with anxiety for few days and then DC Trazodone prn for sleep Conitnue lamictal 25mg daily (started by outpt provider) continue Eloquis; hx of PE DC Paxil to 10mg (to avoid dc-syndrome; will dc if erika does not resolve) DC Zydis (replaced with haldol; pt never really took) DC Risperda (only ever given at low dose) Reason for continued inpatient stay Substantial Risk for: rapid decompensation Time Spent With Patient Time: Total time managing care of this patient today ____ minutes.
[2023-01-28 16:55] VITALS: BP 178/93; PULSE 78; TEMP 36.1
[2023-01-28] MEDS: Divalproex Sodium ER 500 MG TAB.ER.24H 1000 MG PO (20:22)
[2023-01-28] MEDS: Lithium Carbonate ER 450 MG TABLET.ER 900 MG PO (20:23)
[2023-01-28] MEDS: HaloperidoL 1 MG TABLET 2 MG PO (20:24)
[2023-01-28] MEDS: LORazepam 1 MG TABLET PO (20:25)
[2023-01-28] MEDS: HaloperidoL 5 MG TABLET PO (23:18)
[2023-01-29 06:00] VITALS: BP 115/57; PULSE 69; RESP 16; TEMP 36.6; O2SAT 95
[2023-01-29] MEDS: Lidocaine 4 % Patch ADH..PATCH 1 PATCH TRANSDERMA (09:09)
[2023-01-29] MEDS: Apixaban 5 MG TABLET PO ×2 (09:11→21:06)
[2023-01-29] MEDS: Levothyroxine Sodium 25 MCG TABLET PO (09:11)
[2023-01-29] MEDS: lamoTRIgine 25 MG TABLET 50 MG PO (09:11)
[2023-01-29] MEDS: clonazePAM 0.5 MG TABLET PO ×2 (09:12→21:06)
--- NOTE | 2023-01-29 13:33 | P.PNPSI_ITS ---
Subjective Subjective Date of Service: 01/29/23 Reason For Visit: SI Subjective Notes: Conditional Voluntary Interim History: Isolative. In bed a lot. Tearful today, worried that she is bothering her roommate, keeping her awake snoring although acknowledges her roommate has not complained. Medication Compliance: Yes Side effects from medications: No Attending Groups: No Review of Systems Acute medical concerns: No Mental Status Exam Mental Status Exam Patient Appearance: Disheveled Level of Consciousness: Alert Patient Behavior: Passive and Fearful Mood Description: Withdrawn and Depressed Affect Description: Depressed (tearful) Patient Cognition Impaired: No Speech Pattern: Clear Hallucinations: None Delusions: Not Present Thought Process: Intact Thought Content: positive for Slowed Thinking and positive for Suicidal Ideation (passive, no plan) Depressive Symptoms: Crying Spells, Feelings of Guilt and Increased Fatigue Judgement: Fair Diagnostics Vital Signs (24Hr): Vital Signs - 24 hr 01/28/23 16:55 01/29/23 06:00 Temperature 97.0 F 97.9 F Pulse Rate 78 69 Respiratory Rate 16 Blood Pressure 178/93 H 115/57 L Pulse Oximetry 95 Oxygen Delivery Method Room Air BMI result Body Mass Index 28.9 Labs 01/16/23 18:49 01/26/23 08:34 Imaging Radiology Impressions: ITS Impressions Chest X-Ray 01/25/23 13:11 IMPRESSION: Unremarkable examination. Medications Medications Current Medications Acetaminophen (Acetaminophen 325 Mg Tablet) 650 mg PO Q6H PRN PRN Reason: Headache/Pain Mild Scale (1-3) Last Admin: 01/28/23 20:21 Dose: 650 mg Al Hydroxide/Mg Hydroxide (Magnesium Hydrox/Alum Hydrox 30 Ml Oral.Susp) 30 ml PO Q6H PRN PRN Reason: Heartburn/Nausea Apixaban (Apixaban 5 Mg Tablet) 5 mg PO BID [facility] Last Admin: 01/29/23 09:11 Dose: 5 mg Clonazepam (Clonazepam 0.5 Mg Tablet) 0.5 mg PO BID [facility] Last Admin: 01/29/23 09:12 Dose: 0.5 mg Divalproex Sodium (Divalproex Sodium Er 500 Mg Tab.Er.24h) 1,000 mg PO BEDTIME [facility] Last Admin: 01/28/23 20:22 Dose: 1,000 mg Haloperidol (Haloperidol 5 Mg Tablet) 5 mg PO TID PRN PRN Reason: agitation Last Admin: 01/28/23 23:18 Dose: 5 mg Haloperidol (Haloperidol 1 Mg Tablet) 2 mg PO BEDTIME [facility] Last Admin: 01/28/23 20:24 Dose: 2 mg Lamotrigine (Lamotrigine 25 Mg Tablet) 50 mg PO DAILY [facility] Last Admin: 01/29/23 09:11 Dose: 50 mg Levothyroxine Sodium (Levothyroxine Sodium 25 Mcg Tablet) 25 mcg PO DAILY@0900 [facility] Last Admin: 01/29/23 09:11 Dose: 25 mcg Lidocaine (Lidocaine 4 % Patch Adh..Patch) 1 patch TRANSDERMA DAILY [facility]; Protocol Last Admin: 01/29/23 09:09 Dose: 1 patch [place] Carbonate ([place] Carbonate Er 450 Mg Tablet.Er) 900 mg PO BEDTIME [facility] Last Admin: 01/28/23 20:23 Dose: 900 mg Lorazepam (Lorazepam 1 Mg Tablet) 1 mg PO BEDTIME [facility] Last Admin: 01/28/23 20:25 Dose: 1 mg Magnesium Hydroxide (Milk Of Magnesia 30 Ml Oral.Susp) 30 ml PO DAILY PRN PRN Reason: Constipation Last Admin: 01/24/23 03:34 Dose: 30 ml Nicotine Polacrilex (Nicotine Polacrilex 2 Mg Gum) 4 mg BUCCAL Q2H PRN PRN Reason: Nicotine Cravings Allergies Allergies Allergy/AdvReac Type Severity Reaction Status Date / Time Sulfa (Sulfonamide Allergy Unknown RASH Verified 01/16/23 17:21 Antibiotics) [Sulfa(Sulfonamide Antibiotics)] Assessment & Plan Assessment & Plan (1) Bipolar disorder: Status: Acute Code(s): F31.9 - Bipolar disorder, unspecified (2) PTSD (post-traumatic stress disorder): Status: Acute Code(s): F43.10 - Post-traumatic stress disorder, unspecified Plan Patient is a 57 year old female with a history of PE, bipolar disorder, PTSD, and depression. Who presents to the ED via her due to a manic episode following an self decision to increase Paxil. -pt currently manic (mixed state); agrees to start lithium (reviewed risks/side- effects and pt agrees) -will lower, but not discontinue Paxil to avoid discontinuation syndrome; will dc if erika resolve. Hospital course: 01/19 patient has significant improved with lithium; Paxil lowered to 10 mg to avoid discontinuation syndrome but also to better ensure erika fully resolves. 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 Gave 1 time IM of Haldol 2 mg and Ativan which helped patient to come down (IM at her request). Patient agrees to medication management including Risperdal 01/21 patient appears to be more calm, organized and in behavioral control. She did sleep last night longer than usual and feels much more and control; no spasm/nonepileptic seizure events since yesterday. Met with as well and discussed case in detail. Discussed need for therapy. Continue current regimen for now 01/22 Patient remains floridly manic, disorganized, delusional; patient on the floor of her room flopping around saying she can not control herself; patient out in the hallway doing the same. She says ...every time i relax i spasm... I can not control it. she laments i'm beyond coping skills. Patient yelling, crying and hard to engage. Patient requiring much redirection from staff. Patient continues to refer to another floridly psychotic patient on the unit saying that she has this thing with her peer, that they are on a mission together trying to make everyone understand.... Discussed medications and patient says she is open to any medication that will help, Depakote, Zyprexa, Haldol all reviewed and with which patient agrees to. -will start Zydis 5 mg b.i.d. for continued erika while lithium reaching steady state (Zydis since patient says she can not swallow pills although she has been doing so) -will discontinue Paxil to eliminate any possible agents that could prolong manic episode; will consider starting Depakote 01/23 patient remains manic, not sleeping at night, disorganized and very dysregulated; today she became aggressive with staff, trying to assault, bite and required chemical and physical restraint. Patient receive Haldol and Ativan, afterwards patient sleeping most of the day. While lithium is still yet to achieve steady state, patient is becoming aggressive and dangerous and lithium is not proving effective fast enough; thus will add Depakote to regimen; will discontinue Shahla S; will change p.r.n. to Haldol since this has seemingly proved sedating will help keep her and milieu safe and if help patient sleep may also help break erika. 01/24 maybe some improvement with starting depakote; continue current tx plan 01/25/23- Continue current regime, encourage compliance with plan of care. 01/26 a little more organized today; cautiously hopeful that Depakote is helping. Will increase Depakote to a 1000 mg q.h.s.; will repeat labs. Patient asked securities underwriter to call her brother, discussed case and gave phone number. [place] level WNL (bun/cr wnl); however TSH elevated 2.71 to 5.54 (free T4 within normal limits; no symptoms of hypothyroidism) Depakote level subtherapeutic; Lft's grossly WNL (very mildly elevated) 01/27 No med changes, depakote just increased 01/28 lamictal increased to 50 mg 01/29 no med changes PLAN: CV Q15 min checks -Adding Haldol 2 mg q.h.s. plus Ativan 1 mg q.h.s. to better help with sleep which will help break erika -Continue lithium to 900 mg q.h.s.(however will likely taper hoping that Depakote 2 will work is a monotherapy; also lithium seems to have increased TSH) -will check level/associated labs -INCREASED TO Depakote ER 1000 mg q.h.s. (LFTs reviewed and WNL) Otherwise: Haldol 5 mg b.i.d. p.r.n. Continue clonazepam 0.5 mg b.i.d. to help with anxiety for few days and then DC Trazodone prn for sleep Conitnue lamictal 25mg daily (started by outpt provider) continue Eloquis; hx of PE DC Paxil to 10mg (to avoid dc-syndrome; will dc if erika does not resolve) DC Zydis (replaced with haldol; pt never really took) DC Risperda (only ever given at low dose) Reason for continued inpatient stay Substantial Risk for: inability to function Time Spent With Patient Time: Total time managing care of this patient today ____ minutes.
[2023-01-29] MEDS: Milk of Magnesia 30 ML ORAL.SUSP PO (14:08)
[2023-01-29 16:30] VITALS: BP 123/67; PULSE 78; TEMP 36.2
[2023-01-29] MEDS: HaloperidoL 5 MG TABLET PO ×2 (16:38→23:11)
[2023-01-29] MEDS: Lithium Carbonate ER 450 MG TABLET.ER 900 MG PO (21:04)
[2023-01-29] MEDS: HaloperidoL 1 MG TABLET 2 MG PO (21:05)
[2023-01-29] MEDS: Divalproex Sodium ER 500 MG TAB.ER.24H 1000 MG PO (21:06)
[2023-01-29] MEDS: LORazepam 1 MG TABLET PO (21:06)
[2023-01-30] MEDS: Apixaban 5 MG TABLET PO ×2 (08:03→20:18)
[2023-01-30] MEDS: lamoTRIgine 25 MG TABLET 50 MG PO (08:03)
[2023-01-30] MEDS: clonazePAM 0.5 MG TABLET PO (08:04)
[2023-01-30] MEDS: Levothyroxine Sodium 25 MCG TABLET PO (08:04)
[2023-01-30 08:57] VITALS: BP 111/58; PULSE 73; RESP 16; TEMP 36.6; O2SAT 98
[2023-01-30] MEDS: Lidocaine 4 % Patch ADH..PATCH 1 PATCH TRANSDERMA (08:57)
--- NOTE | 2023-01-30 12:09 | HO.PSYCHPN ---
Subjective Subjective Date of Service: 01/30/23 Reason For Visit: SI Interim History: Met with patient; discussed with team; reviewed weekend progress notes Patient has improved some; no incidence of spasm/nonepileptic seizure activity or crawling on the floor; patient sleeping in her own bed and less labile. Patient says that she overall thinks she is doing better but that it is a roller coaster of emotion and points to a specific peer that she finds triggering. Patient says she is able to hold together and that she is now sleeping through the night. She is a little frightened by being on the unit given some of the acuity and wonders if she might continue treatment at home. Discussed medications and lab work and patient agrees to continue with regimen for now, however eliminating Haldol as a p.r.n.. She wants to keep Haldol 2 mg q.h.s. with Ativan at bedtime since she has been finally sleeping through the night. Patient does look a little tired and keeps her eyes closed throughout much of the discussion though sitting in the day room at a chair still eating lunch. Mental Status Exam Mental Status Exam Narrative: Pt is alert and oriented but appears tired; behavior is more organized though still labile; adequately groomed; mood is described as a roller coaster and affect anxious; eye contact limited; Speech is a little slowed, soft; some psychomotor retardation seems present; thought process is mostly goal directed; Thought content is on psychiatric illness, treatment; denies any SI/HI. No AVH. Patients insight and judgment impaired but has improved. Diagnostics Vital Signs (24Hr): Vital Signs - 24 hr 01/29/23 16:30 01/30/23 08:57 Temperature 97.2 F 97.9 F Pulse Rate 78 73 Respiratory Rate 16 Blood Pressure 123/67 111/58 L Pulse Oximetry 98 Oxygen Delivery Method Room Air BMI result Body Mass Index 28.9 Labs 01/16/23 18:49 01/26/23 08:34 Imaging Radiology Impressions: ITS Impressions Chest X-Ray 01/25/23 13:11 IMPRESSION: Unremarkable examination. Medications Medications Current Medications Acetaminophen (Acetaminophen 325 Mg Tablet) 650 mg PO Q6H PRN PRN Reason: Headache/Pain Mild Scale (1-3) Last Admin: 01/28/23 20:21 Dose: 650 mg Al Hydroxide/Mg Hydroxide (Magnesium Hydrox/Alum Hydrox 30 Ml Oral.Susp) 30 ml PO Q6H PRN PRN Reason: Heartburn/Nausea Apixaban (Apixaban 5 Mg Tablet) 5 mg PO BID [facility] Last Admin: 01/30/23 08:03 Dose: 5 mg Clonazepam (Clonazepam 0.5 Mg Tablet) 0.5 mg PO BID [facility] Last Admin: 01/30/23 08:04 Dose: 0.5 mg Divalproex Sodium (Divalproex Sodium Er 500 Mg Tab.Er.24h) 1,000 mg PO BEDTIME [facility] Last Admin: 01/29/23 21:06 Dose: 1,000 mg Haloperidol (Haloperidol 1 Mg Tablet) 2 mg PO BEDTIME [facility] Last Admin: 01/29/23 21:05 Dose: 2 mg Haloperidol (Haloperidol 5 Mg Tablet) 5 mg PO DAILY PRN PRN Reason: agitation Lamotrigine (Lamotrigine 25 Mg Tablet) 50 mg PO DAILY [facility] Last Admin: 01/30/23 08:03 Dose: 50 mg Levothyroxine Sodium (Levothyroxine Sodium 25 Mcg Tablet) 25 mcg PO DAILY@0900 [facility] Last Admin: 01/30/23 08:04 Dose: 25 mcg Lidocaine (Lidocaine 4 % Patch Adh..Patch) 1 patch TRANSDERMA DAILY [facility]; Protocol Last Admin: 01/30/23 08:57 Dose: 1 patch [place] Carbonate ([place] Carbonate Er 450 Mg Tablet.Er) 900 mg PO BEDTIME [facility] Last Admin: 01/29/23 21:04 Dose: 900 mg Lorazepam (Lorazepam 1 Mg Tablet) 1 mg PO BEDTIME [facility] Last Admin: 01/29/23 21:06 Dose: 1 mg Magnesium Hydroxide (Milk Of Magnesia 30 Ml Oral.Susp) 30 ml PO DAILY PRN PRN Reason: Constipation Last Admin: 01/29/23 14:08 Dose: 15 ml Nicotine Polacrilex (Nicotine Polacrilex 2 Mg Gum) 4 mg BUCCAL Q2H PRN PRN Reason: Nicotine Cravings Allergies Allergies Allergy/AdvReac Type Severity Reaction Status Date / Time Sulfa (Sulfonamide Allergy Unknown RASH Verified 01/16/23 17:21 Antibiotics) [Sulfa(Sulfonamide Antibiotics)] Assessment & Plan Assessment & Plan (1) Bipolar disorder: Status: Acute Code(s): F31.9 - Bipolar disorder, unspecified (2) PTSD (post-traumatic stress disorder): Status: Acute Code(s): F43.10 - Post-traumatic stress disorder, unspecified Plan Patient is a 57 year old female with a history of PE, bipolar disorder, PTSD, and depression. Who presents to the ED via her due to a manic episode following an self decision to increase Paxil. -pt currently manic (mixed state); agrees to start lithium (reviewed risks/side-effects and pt agrees) -will lower, but not discontinue Paxil to avoid discontinuation syndrome; will dc if erika resolve. Hospital course: 01/19 patient has significant improved with lithium; Paxil lowered to 10 mg to avoid discontinuation syndrome but also to better ensure erika fully resolves. 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 Gave 1 time IM of Haldol 2 mg and Ativan which helped patient to come down (IM at her request). Patient agrees to medication management including Risperdal 01/21 patient appears to be more calm, organized and in behavioral control. She did sleep last night longer than usual and feels much more and control; no spasm/nonepileptic seizure events since yesterday. Met with as well and discussed case in detail. Discussed need for therapy. Continue current regimen for now 01/22 Patient remains floridly manic, disorganized, delusional; patient on the floor of her room flopping around saying she can not control herself; patient out in the hallway doing the same. She says ...every time i relax i spasm... I can not control it. she laments i'm beyond coping skills. Patient yelling, crying and hard to engage. Patient requiring much redirection from staff. Patient continues to refer to another floridly psychotic patient on the unit saying that she has this thing with her peer, that they are on a mission together trying to make everyone understand.... Discussed medications and patient says she is open to any medication that will help, Depakote, Zyprexa, Haldol all reviewed and with which patient agrees to. -will start Zydis 5 mg b.i.d. for continued erika while lithium reaching steady state (Zydis since patient says she can not swallow pills although she has been doing so) -will discontinue Paxil to eliminate any possible agents that could prolong manic episode; will consider starting Depakote 01/23 patient remains manic, not sleeping at night, disorganized and very dysregulated; today she became aggressive with staff, trying to assault, bite and required chemical and physical restraint. Patient receive Haldol and Ativan, afterwards patient sleeping most of the day. While lithium is still yet to achieve steady state, patient is becoming aggressive and dangerous and lithium is not proving effective fast enough; thus will add Depakote to regimen; will discontinue Shahla S; will change p.r.n. to Haldol since this has seemingly proved sedating will help keep her and milieu safe and if help patient sleep may also help break erika. 01/24 maybe some improvement with starting depakote; continue current tx plan 01/25/23- Continue current regime, encourage compliance with plan of care. 01/26 a little more organized today; cautiously hopeful that Depakote is helping. Will increase Depakote to a 1000 mg q.h.s.; will repeat labs. Patient asked real estate underwriter to call her brother, discussed case and gave phone number. [place] level WNL (bun/cr wnl); however TSH elevated 2.71 to 5.54 (free T4 within normal limits; no symptoms of hypothyroidism) Depakote level subtherapeutic; Lft's grossly WNL (very mildly elevated) 01/27 No med changes, depakote just increased 01/28 lamictal increased to 50 mg 01/29 no med changes 01/30 will leave medication as it is for now since erika seems to have been broken; patient does seem a little sluggish and some concern given elevated ammonia level; may consider lowering Depakote. Will do away with Haldol 5 mg as a p.r.n. to limit risk of side effects for now; however will leave Haldol 2 mg q.h.s. with Ativan since patient is sleeping. Depakote level 85.5; LFTs within normal however ammonia is now elevated at 63 TSH remains very mildly elevated with normal free T4 PLAN: CV Q15 min checks -continue Haldol 2 mg q.h.s. plus Ativan 1 mg q.h.s. to better help with sleep which will help break erika -Continue lithium to 900 mg q.h.s.(however will likely taper hoping that Depakote 2 will work is a monotherapy; also lithium seems to have increased TSH) -will check level/associated labs -will consider lowering Depakote ER mg q.h.s. (LFTs reviewed and WNL) Otherwise: Continue clonazepam 0.5 mg b.i.d. to help with anxiety for few days and then DC Trazodone prn for sleep Increased to lamictal 50 mg daily; increased on 01/28); patient has been on 25 mg for 2 weeks (started by outpt provider); will continue to titrate since patient has history of PTSD and anxiety continue Eloquis; hx of PE DC Paxil to 10mg (to avoid dc-syndrome; will dc if erika does not resolve) DC Zydis (replaced with haldol; pt never really took) DC Risperda (only ever given at low dose) DC Haldol 5 mg b.i.d. p.r.n. to avoid polypharmacy Patient educated on: diagnosis, medication risk/benefits and therapeutic strategies Informed Consent: understands and further education needed Reason for continued inpatient stay Substantial Risk for: rapid decompensation Time Spent With Patient Time: Total time managing care of this patient today ____ minutes.
[2023-01-30 14:11] LABS: Ammonia 63 umol/L (13-55)
[2023-01-30 14:16] LABS: Valproate 85.5 mcg/mL (50.0-100.0)
[2023-01-30 14:19] LABS: Alanine Aminotransferase 28 U/L (0-31); Albumin Level 4.2 g/dL (3.5-5.0); Alkaline Phosphatase 67 U/L (39-117); Aspartate Amino Transferase 18 U/L (5-31); Bilirubin Direct 0.1 mg/dL (0.0-0.5); Bilirubin Total 0.5 mg/dL (0.0-1.0); Total Protein 6.4 g/dL (6.5-8.0)
[2023-01-30 14:39] LABS: TSH reflex Free T4 4.52 uIU/mL (0.32-4.0)
[2023-01-30 15:46] LABS: Free T4 (Free Thyroxine) 1.07 ng/dL (0.71-1.85)
[2023-01-30 18:00] VITALS: BP 144/65; PULSE 72; RESP 18; TEMP 36.7; O2SAT 100
[2023-01-30] MEDS: Lithium Carbonate ER 450 MG TABLET.ER 900 MG PO (20:18)
[2023-01-30] MEDS: HaloperidoL 1 MG TABLET 2 MG PO (20:18)
[2023-01-30] MEDS: Divalproex Sodium ER 500 MG TAB.ER.24H 1000 MG PO (20:18)
[2023-01-30] MEDS: LORazepam 1 MG TABLET PO (20:19)
[2023-01-31 06:00] VITALS: BP 137/63; PULSE 76; RESP 18
[2023-01-31] MEDS: Lidocaine 4 % Patch ADH..PATCH 1 PATCH TRANSDERMA (08:15)
[2023-01-31] MEDS: Apixaban 5 MG TABLET PO ×2 (08:15→21:16)
[2023-01-31] MEDS: lamoTRIgine 25 MG TABLET 50 MG PO (08:15)
[2023-01-31] MEDS: Levothyroxine Sodium 25 MCG TABLET PO (08:15)
--- NOTE | 2023-01-31 09:44 | P.PNPSI_ITS ---
Subjective Subjective Date of Service: 01/31/23 Reason For Visit: SI Interim History: Met with patient; discussed with team; met with patient's Patient is sleeping through the night, however still remains little sluggish and slowed; discussed with her (and ) concern for elevated ammonia levels; patient agrees to continue with medication but at a lowered Depakote dose intake a 1 time dose of lactulose. She would like to be discharged this week feeling that the acuity on the unit is trouble some and that she stable enough to continue recovering at home. Mental Status Exam Mental Status Exam Narrative: Pt is alert and oriented but appears tired; behavior is more organized; adequately groomed; mood is described as okr and affect constricted; eye contact limited; Speech is a little slowed, soft; some psychomotor retardation seems present; thought process is mostly goal directed; Thought content is on psychiatric illness, treatment; no delusional thinking; denies any SI/HI. No AVH. Patients insight and judgment impaired but has improved and is adequate Diagnostics Vital Signs (24Hr): Vital Signs - 24 hr 01/30/23 18:00 01/31/23 06:00 Temperature 98.1 F Pulse Rate 72 76 Respiratory Rate 18 18 Blood Pressure 144/65 H 137/63 Pulse Oximetry 100 Oxygen Delivery Method Room Air Room Air BMI result Body Mass Index 28.9 Labs 01/16/23 18:49 01/26/23 08:34 Labs: Laboratory Results - last 48 hr 01/30/23 01/30/23 01/30/23 13:53 13:53 13:53 Total Bilirubin 0.5 Direct Bilirubin 0.1 AST 18 ALT 28 Alkaline Phosphatase 67 Ammonia 63 H Total Protein 6.4 L Albumin 4.2 TSH Free T4 Valproic Acid 85.5 01/30/23 13:53 Total Bilirubin Direct Bilirubin AST ALT Alkaline Phosphatase Ammonia Total Protein Albumin TSH 4.52 H Free T4 1.07 Valproic Acid Imaging Radiology Impressions: ITS Impressions Chest X-Ray 01/25/23 13:11 IMPRESSION: Unremarkable examination. Medications Medications Current Medications Acetaminophen (Acetaminophen 325 Mg Tablet) 650 mg PO Q6H PRN PRN Reason: Headache/Pain Mild Scale (1-3) Last Admin: 01/28/23 20:21 Dose: 650 mg Al Hydroxide/Mg Hydroxide (Magnesium Hydrox/Alum Hydrox 30 Ml Oral.Susp) 30 ml PO Q6H PRN PRN Reason: Heartburn/Nausea Apixaban (Apixaban 5 Mg Tablet) 5 mg PO BID [facility] Last Admin: 01/31/23 08:15 Dose: 5 mg Clonazepam (Clonazepam 0.5 Mg Tablet) 0.5 mg PO BID PRN PRN Reason: anxiety Divalproex Sodium (Divalproex Sodium Er 250 Mg Tab.Er.24h) 750 mg PO BEDTIME [facility] Haloperidol (Haloperidol 1 Mg Tablet) 2 mg PO BEDTIME [facility] Last Admin: 01/30/23 20:18 Dose: 2 mg Lamotrigine (Lamotrigine 25 Mg Tablet) 50 mg PO DAILY [facility] Last Admin: 01/31/23 08:15 Dose: 50 mg Levothyroxine Sodium (Levothyroxine Sodium 25 Mcg Tablet) 25 mcg PO DAILY@0900 [facility] Last Admin: 01/31/23 08:15 Dose: 25 mcg Lidocaine (Lidocaine 4 % Patch Adh..Patch) 1 patch TRANSDERMA DAILY [facility]; Protocol Last Admin: 01/31/23 08:15 Dose: 1 patch [place] Carbonate ([place] Carbonate Er 450 Mg Tablet.Er) 900 mg PO BEDTIME [facility] Last Admin: 01/30/23 20:18 Dose: 900 mg Lorazepam (Lorazepam 1 Mg Tablet) 1 mg PO BEDTIME [facility] Last Admin: 01/30/23 20:19 Dose: 1 mg Magnesium Hydroxide (Milk Of Magnesia 30 Ml Oral.Susp) 30 ml PO DAILY PRN PRN Reason: Constipation Last Admin: 01/29/23 14:08 Dose: 15 ml Nicotine Polacrilex (Nicotine Polacrilex 2 Mg Gum) 4 mg [place]CCAL Q2H PRN PRN Reason: Nicotine Cravings Allergies Allergies Allergy/AdvReac Type Severity Reaction Status Date / Time Sulfa (Sulfonamide Allergy Unknown RASH Verified 01/16/23 17:21 Antibiotics) [Sulfa(Sulfonamide Antibiotics)] Assessment & Plan Assessment & Plan (1) Bipolar disorder: Status: Acute Code(s): F31.9 - Bipolar disorder, unspecified (2) PTSD (post-traumatic stress disorder): Status: Acute Code(s): F43.10 - Post-traumatic stress disorder, unspecified Plan Patient is a 57 year old female with a history of PE, bipolar disorder, PTSD, and depression. Who presents to the ED via her due to a manic episode following an self decision to increase Paxil. -pt currently manic (mixed state); agrees to start lithium (reviewed risks/side- effects and pt agrees) -will lower, but not discontinue Paxil to avoid discontinuation syndrome; will dc if erika resolve. Hospital course: 01/19 patient has significant improved with lithium; Paxil lowered to 10 mg to avoid discontinuation syndrome but also to better ensure erika fully resolves. 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 Gave 1 time IM of Haldol 2 mg and Ativan which helped patient to come down (IM at her request). Patient agrees to medication management including Risperdal 01/21 patient appears to be more calm, organized and in behavioral control. She did sleep last night longer than usual and feels much more and control; no spasm/nonepileptic seizure events since yesterday. Met with as well and discussed case in detail. Discussed need for therapy. Continue current regimen for now 01/22 Patient remains floridly manic, disorganized, delusional; patient on the floor of her room flopping around saying she can not control herself; patient out in the hallway doing the same. She says ...every time i relax i spasm... I can not control it. she laments i'm beyond coping skills. Patient yelling, crying and hard to engage. Patient requiring much redirection from staff. Patient continues to refer to another floridly psychotic patient on the unit saying that she has this thing with her peer, that they are on a mission together trying to make everyone understand.... Discussed medications and carlos ent says she is open to any medication that will help, Depakote, Zyprexa, Haldol all reviewed and with which patient agrees to. -will start Zydis 5 mg b.i.d. for continued erika while lithium reaching steady state (Zydis since patient says she can not swallow pills although she has been doing so) -will discontinue Paxil to eliminate any possible agents that could prolong manic episode; will consider starting Depakote 01/23 patient remains manic, not sleeping at night, disorganized and very dysre gulated; today she became aggressive with staff, trying to assault, bite and required chemical and physical restraint. Patient receive Haldol and Ativan, afterwards patient sleeping most of the day. While lithium is still yet to achieve steady state, patient is becoming aggressive and dangerous and lithium is not proving effective fast enough; thus will add Depakote to regimen; will discontinue Shahla S; will change p.r.n. to Haldol since this has seemingly proved sedating will help keep her and milieu safe and if help patient sleep may also help break erika. 01/24 maybe some improvement with starting depakote; continue current tx plan 01/25/23- Continue current regime, encourage compliance with plan of care. 01/26 a little more organized today; cautiously hopeful that Depakote is helping. Will increase Depakote to a 1000 mg q.h.s.; will repeat labs. Patient asked television writer to call her brother, discussed case and gave phone number. [place] level WNL (bun/cr wnl); however TSH elevated 2.71 to 5.54 (free T4 within normal limits; no symptoms of hypothyroidism) Depakote level subtherapeutic; Lft's grossly WNL (very mildly elevated) 01/27 No med changes, depakote just increased 01/28 lamictal increased to 50 mg 01/29 no med changes 01/30 will leave medication as it is for now since erika seems to have been broken; patient does seem a little sluggish and some concern given elevated ammonia level; may consider lowering Depakote. Will do away with Haldol 5 mg as a p.r.n. to limit risk of side effects for now; however will leave Haldol 2 mg q.h.s. with Ativan since patient is sleeping. Depakote level 85.5; LFTs within normal however ammonia is now elevated at 63 TSH remains very mildly elevated with normal free T4 01/31 will lower Depakote to 750 mg given elevated ammonia; will give 1 dose of lactulose; recheck levels PLAN: CV Q15 min checks -continue Haldol 2 mg q.h.s. plus Ativan 1 mg q.h.s. to better help with sleep which will help break erika -Continue lithium to 900 mg q.h.s.(however will likely taper hoping that Depakote 2 will work is a monotherapy; also lithium seems to have increased TSH) -will check level/associated labs -LOWERed to Depakote ER mg 750mg q.h.s.; although erika seems to be breaking and valproic levels within normal, ammonia increased; will repeat labs -1 time dose lactulose 20 mg Otherwise: Continue clonazepam 0.5 mg b.i.d. to help with anxiety for few days and then DC Trazodone prn for sleep Increased to lamictal 50 mg daily; increased on 01/28); patient has been on 25 mg for 2 weeks (started by outpt provider); will continue to titrate since patient has history of PTSD and anxiety continue Eloquis; hx of PE DC Paxil to 10mg (to avoid dc-syndrome; will dc if erika does not resolve) DC Zydis (replaced with haldol; pt never really took) DC Risperda (only ever given at low dose) DC Haldol 5 mg b.i.d. p.r.n. to avoid polypharmacy Patient educated on: diagnosis and medication risk/benefits Informed Consent: understands Reason for continued inpatient stay Substantial Risk for: rapid decompensation and med/psych decompensation Time Spent With Patient Time: Total time managing care of this patient today ____ minutes.
[2023-01-31] MEDS: clonazePAM 0.5 MG TABLET PO (11:41)
[2023-01-31] MEDS: Lactulose 20 GM/30 ML SOLUTION PO (13:50)
[2023-01-31 16:50] VITALS: BP 125/92; PULSE 84; TEMP 36.5
[2023-01-31] MEDS: LORazepam 1 MG TABLET PO (21:16)
[2023-01-31] MEDS: Lithium Carbonate ER 450 MG TABLET.ER 900 MG PO (21:16)
[2023-01-31] MEDS: HaloperidoL 1 MG TABLET 2 MG PO (21:16)
[2023-01-31] MEDS: Divalproex Sodium ER 250 MG TAB.ER.24H 750 MG PO (21:17)
[2023-02-01] MEDS: clonazePAM 0.5 MG TABLET PO (03:19)
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
[2023-02-01] MEDS: Apixaban 5 MG TABLET PO ×2 (08:54→20:34)
[2023-02-01] MEDS: lamoTRIgine 25 MG TABLET 50 MG PO (08:54)
[2023-02-01] MEDS: Lidocaine 4 % Patch ADH..PATCH 1 PATCH TRANSDERMA (08:54)
[2023-02-01] MEDS: Levothyroxine Sodium 25 MCG TABLET PO (08:54)
[2023-02-01 09:01] VITALS: BP 96/55; PULSE 75; RESP 15; TEMP 36.6; O2SAT 99
[2023-02-01 14:12] LABS: Influenza A PCR NEGATIVE (Negative); Influenza B PCR NEGATIVE (Negative); Resp Syncy Virus RNA Qual PCR NEGATIVE (Negative); SARS COV2 PCR INHOUSE NEGATIVE (Negative)
[2023-02-01] MEDS: Lactulose 20 GM/30 ML SOLUTION PO (14:42)
[2023-02-01 17:05] VITALS: BP 118/72; PULSE 76; TEMP 36.3
[2023-02-01] MEDS: Lithium Carbonate ER 450 MG TABLET.ER 900 MG PO (20:33)
[2023-02-01] MEDS: HaloperidoL 1 MG TABLET 2 MG PO (20:33)
[2023-02-01] MEDS: LORazepam 1 MG TABLET PO (20:34)
[2023-02-01] MEDS: Divalproex Sodium ER 250 MG TAB.ER.24H 750 MG PO (20:34)
[2023-02-02 06:00] VITALS: BP 127/69; PULSE 83; RESP 14; TEMP 36.2; O2SAT 83
[2023-02-02 08:20] LABS: Ammonia 29 umol/L (13-55)
[2023-02-02 08:32] LABS: Alanine Aminotransferase 26 U/L (0-31); Albumin Level 4.4 g/dL (3.5-5.0); Alkaline Phosphatase 78 U/L (39-117); Aspartate Amino Transferase 19 U/L (5-31); Bilirubin Direct 0.1 mg/dL (0.0-0.5); Bilirubin Total 0.5 mg/dL (0.0-1.0); Total Protein 6.7 g/dL (6.5-8.0)
[2023-02-02] MEDS: Levothyroxine Sodium 25 MCG TABLET PO (08:45)
[2023-02-02] MEDS: lamoTRIgine 25 MG TABLET 50 MG PO (08:46)
[2023-02-02] MEDS: Lidocaine 4 % Patch ADH..PATCH 1 PATCH TRANSDERMA (08:46)
[2023-02-02] MEDS: Apixaban 5 MG TABLET PO (08:46)
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
== END 2023-02-02 15:35 | disposition home or self-care (01) | DRG 753 ==
LOC: HO.ED 01-17 17:01 → HO.PM5 01-17 22:53
PROVIDERS: Admitting Provider Psychiatry & Neurology Psychiatry; Emergency Provider Emergency Medicine; Visit Provider Psychiatry & Neurology Psychiatry
DX: F31.9 Bipolar disorder, unspecified (principal); R45.851 Suicidal ideations; F43.10 Post-traumatic stress disorder, unspecified; Z20.822 Contact with and (suspected) exposure to COVID-19; Z79.01 Long term (current) use of anticoagulants; Z88.2 Allergy status to sulfonamides; Z79.890 Hormone replacement therapy; Z79.899 Other long term (current) drug therapy
CPT/HCPCS: 0241U; 36415; 71045; 80053; 80061; 80076; 80164; 80178; 80307; 81003; 82077; 82140; 82565; 84439; 84443; 84520; 85025; 87635; 93005; 99285; J1200; J2060; S9485